=== PATIENT | female | born 1965 | race Caucasian/White ===

== ENCOUNTER 2016-08-19 11:50 | Emergency (ER) | payer BC, OTHER ==
[~2016-08-19 11:50] MED LIST: ALLE12TA31 PO; ASTE0.15; AUGM875T27 PO; BIOT50004 PO; CENTTAB47 PO; CITROCAL PO; HYDR-3713 PO; HYDR-3716 PO; MELA0.02 PO; PROBCAP4 PO; PROT1TAB2 PO; SING10TA32 PO; SYNT100T PO; TYLE325T5 PO; VITA200015 PO; VITA250L PO; asmanex INH
--- NOTE | 2016-08-19 12:35 | REP ---
PORTABLE CHEST: AP portable view of the chest is performed and compared to a prior study of 06/14/2016. There is no evidence of acute infiltrate or pulmonary edema. The heart is normal in size. The mediastinal silhouette is unremarkable. Visualized osseous structures are intact. IMPRESSION: No acute infiltrate. Signed by Roman Rodas MD 08/19/2016 02:34 P
[2016-08-19 12:44] LABS: BASO % 0.2 % (0.0-1.0); EOS # 0.1 K/mm3 (0.0-0.50); EOS % 1.4 % (0.0-3.0); LARGE UNSTAINED CELL # 0.1 K/mm3 (0.0-0.4); LYMPH # 1.2 K/mm3 (1.5-4.5); LYMPH % 17.8 % (24.0-44.0); MEAN CORPUSCULAR HEMOGLOBIN 32.6 pg (27.0-33.0); MEAN CORPUSCULAR HGB CONC 33.9 g/dl (32.0-36.5); MONO # 0.3 K/mm3 (0.0-0.8); MONO % 4.2 % (0.0-5.0); NEUTROPHILS # 5.2 K/mm3 (1.8-7.7); NEUTROPHILS % 74.4 % (36.0-66.0); PLATELET COUNT, AUTOMATED 253 k/mm3 (150-450); RED CELL DISTRIBUTION WIDTH 11.7 % (11.5-14.5); WHITE BLOOD COUNT 6.9 K/mm3 (4.0-10.0)
[2016-08-19 12:54] LABS: ANION GAP 5 MEQ/L (8-16); BLOOD UREA NITROGEN 10 MG/DL (7-18); CALCIUM LEVEL 8.2 MG/DL (8.5-10.1); CARBON DIOXIDE LEVEL 30 MEQ/L (21-32); CHLORIDE LEVEL 107 MEQ/L (98-107); GLOMERULAR FILTRATION RATE > 60.0 (>58); GLUCOSE, FASTING 92 MG/DL (70-105); POTASSIUM SERUM 3.5 MEQ/L (3.5-5.1); SODIUM LEVEL 142 MEQ/L (136-145)
[2016-08-19] MEDS ORDERED: NITROGLYCERIN 0.4 MG SUBL TABLET As Ordered ONE (13:02)
[2016-08-19] MEDS ORDERED: ISOVUE-370 76% 100ML VIAL (Q9967) As Ordered ONE (13:05)
[2016-08-19] MEDS ORDERED: ACETAMINOPHEN 325 MG TAB As Ordered ONE (13:42)
--- NOTE | 2016-08-19 14:07 | REP ---
CT pulmonary angiogram: With IV contrast. History: Chest pain. Comparison studies: No comparison chest CT studies. Comparison chest x-ray is from today. Contrast dose: 75 cc's of Isovue [address] technique: Helical scanning is acquired and overlapping 1.5 mm and contiguous 3 mm axial images are reformatted. In addition, a 3-D work station is deployed to generate thick slab maximum intensity projection images in sagittal and coronal imaging projections. CT pulmonary angiographic findings: There is good opacification of the pulmonary arterial tree. There is no CT evidence of pulmonary embolism. Maximum intensity projection images show no vessel cutoff or filling defect to suggest a pulmonary arterial thrombus. The thoracic aorta enhances homogeneously and the aorta is normal in caliber and course. There is no evidence of dissection or aneurysm. No pleural or pericardial effusion is seen. No hilar or mediastinal mass or adenopathy is observed. There is a hiatal hernia noted behind the heart. The lung ennis show no evidence of infiltrate, mass, atelectasis or nodule. The patient is status post gastric bypass. The visualized upper abdominal structures are otherwise unremarkable. Impression: 1. No CT evidence of pulmonary embolism. 2. Patient status post gastric bypass. 3. Small sliding-type hiatal hernia noted. Signed by Zack Guillen MD 08/19/2016 03:06 P
--- NOTE | 2016-08-19 19:19 | EDDOCDS ---
Nurse's Notes [facility] Name: Randa Strange Age: 51 yrs Sex: Female : 1965 Arrival Date: 08/19/2016 Time: 11:50 Bed OBSERVATION Private MD: Diagnosis: Chest pain, unspecified Presentation: 08/19 11:53 Presenting complaint: EMS states: chest pressure/pain at school. Aspirin given by rs3 school nurse. had previous similar episodes. had been referred to cardiology/neurology previously. Aspirin was taken KILN CHARGER. 325 given. Adult Sepsis Screening: The patient does not have new or worsening altered mentation. Patient's respiratory rate is less than 22. Systolic blood pressure is greater than 100. Patient has a qSOFA score of 0- Negative Sepsis Screen. Suicide/Homicide risk assessment- the patient denies having any suicidal and/or homicidal ideations and does not present with any other emotional, behavioral or mental health complaints. Status: Patient is not a access services assistant or dependent. Transition of care: patient was not received from another setting of care. 11:53 Acuity: HOLLY Level 3 3 11:53 Method Of Arrival: Ambulance rs3 Triage Assessment: 12:11 General: Appears in no apparent distress. Pain: Denies pain. HIV screening NA for this rs3 visit Offered previously. Cardiovascular: Chest pain is described as vague, radiates Does not radiate. episodes are intermittent began 1 hour prior to arrival. Historical: - Allergies: Bees; Blue Dye; Honey; Imitrex; Latex; [id number] Antimigraine Agents; - Home Meds: 1. aspirin 81 mg Oral tab 1 tab once daily 2. Astepro 0.15 % (205.5 mcg) nasal spry 2 sprays 2 times per day 3. levothyroxine 175 mcg Oral tab 1 tab once daily 4. Protonix 40 mg Oral TbEC 1 tab once daily 5. Singulair 10 mg Oral tab 1 tab once daily 6. Wellbutrin XL 150 mg Oral Tb24 bid - PMHx: GERD; Hypothyroidism; Seasonal Allergies; - PSHx: Hysterectomy; Appendectomy; Cholecystectomy; Gastric Bypass; Plantar Fasciotomy; - Social history: Smoking status: Patient states was never smoker of tobacco. No barriers to communication noted, The patient speaks fluent Tajik. - : The pt / caregiver states he / she is not on anticoagulants. Home medication list is obtained from the patient. - Exposure Risk Screening:: None identified. Screenin:24 Screening information is obtained from the patient. Fall risk: No risks identified. rs3 Assistance ADL's: requires no assistance with activities of daily living. Abuse/DV Screen: The patient / caregiver reports he/she is: not in a situation that causes fear, pain or injury. Nutritional screening: No deficits noted. Advance Directives: Currently, there is no health care proxy. There is no active DNR order. home support is adequate. Assessment: 12:12 General: Appears in no apparent distress, Behavior is appropriate for age, cooperative. rs3 Pain: Denies pain. Neurological: Level of Consciousness is awake, alert, Oriented to person, place, time. Cardiovascular: Rhythm is regular. Respiratory: Airway is patent Respiratory effort is even, unlabored, Respiratory pattern is regular, symmetrical. Respiratory: Breath sounds are clear bilaterally. Derm: Skin is pink, warm & dry. 13:22 General: Appears in no apparent distress, reports of chest pain/dizziness, hard time rs3 swallowing. attending provider made aware. ordered Nitrostat given with complete relief. EKG obtained. reports of headache from Nitrostat. will notify provider. 14:02 General: Appears in no apparent distress, Behavior is cooperative, patient resting rs3 comfortable. Tylenol given for headache. denies of chest pain. waiting on CT angio results. . 15:15 General: Appears in no apparent distress, denies of pain/headache. resting comfortable. rs3 requesting water. given to her. headache resolved with Tylenol. updated patient on repeat card jono. family at bedside. 16:02 General: Appears in no apparent distress, comfortable, Behavior is appropriate for age, ms18 cooperative, pleasant. Pain: Denies pain. Neurological: Level of Consciousness is awake, alert, obeys commands, Oriented to person, place, time. Respiratory: Derm: Skin is pink, warm & dry. 17:29 General: Appears in no apparent distress, Behavior is appropriate for age, cooperative, rs3 denies of chest pain/dizziness/sob. family at bedside. waiting for repeat card jono. . 18:20 General: Appears in no apparent distress, Behavior is appropriate for age, denies of rs3 pain/distress. reports of mild-moderated headache. repeat card jono sent. Vital Signs: 12:11 BP 132 / 68; Pulse 65; Resp 18; Temp 98.5; Pulse Ox 100% on R/A; Weight 63.5 kg; Height rs3 5 ft. 2 in. (157.48 cm); Pain 0/10; 12:22 BP 132 / 67 (auto/); rs3 12:23 Pulse 66 MON; Pulse Ox 100% ; rs3 12:52 BP 117 / 87 (auto/); rs3 12:53 Pulse 82 MON; Pulse Ox 98% ; rs3 13:07 BP 137 / 61 (auto/); rs3 13:09 Pulse 80 MON; Pulse Ox 100% ; rs3 13:22 BP 131 / 69 (auto/); rs3 13:22 Pulse 72 MON; Pulse Ox 98% ; rs3 13:37 BP 121 / 62 (auto/); rs3 13:38 Pulse 72 MON; Pulse Ox 100% ; rs3 13:52 BP 121 / 56 (auto/); rs3 13:53 Pulse 72 MON; Pulse Ox 96% ; rs3 14:07 BP 120 / 57 (auto/); rs3 14:08 Pulse 68 MON; Pulse Ox 99% ; rs3 14:22 BP 111 / 57 (auto/); rs3 14:23 Pulse 68 MON; Pulse Ox 99% ; rs3 14:37 BP 115 / 55 (auto/); rs3 14:38 Pulse 66 MON; Pulse Ox 98% ; rs3 14:52 BP 117 / 58 (auto/); rs3 14:53 Pulse 68 MON; Pulse Ox 98% ; rs3 15:07 BP 114 / 85 (auto/); rs3 15:08 Pulse 70 MON; Pulse Ox 99% ; rs3 15:22 BP 117 / 58 (auto/); rs3 15:23 Pulse 64 MON; Pulse Ox 98% ; rs3 15:37 BP 119 / 63 (auto/); rs3 15:38 Pulse 66 MON; Pulse Ox 98% ; rs3 15:52 BP 109 / 58 (auto/); rs3 15:53 Pulse 62 MON; Pulse Ox 98% ; rs3 16:07 BP 112 / 58 (auto/); rs3 16:08 Pulse 64 MON; Pulse Ox 99% ; rs3 16:22 BP 112 / 66 (auto/); rs3 16:23 Pulse 60 MON; Pulse Ox 99% ; rs3 16:37 BP 123 / 58 (auto/); rs3 16:38 Pulse 62 MON; Pulse Ox 99% ; rs3 16:52 BP 120 / 58 (auto/); rs3 16:53 Pulse 62 MON; Pulse Ox 99% ; rs3 17:07 BP 126 / 61 (auto/); rs3 17:07 Pulse 62 MON; Pulse Ox 98% ; rs3 17:22 BP 141 / 64 (auto/); rs3 17:23 Pulse 66 MON; Pulse Ox 98% ; rs3 12:11 Body Mass Index 25.61 (63.50 kg, 157.48 cm) rs3 Vitals: 12:11 Log In Time N/A - ambulance arrival. rs3 ED Course: 11:50 Patient visited by Alycia Mckeon Director Of Special Events. deg 11:50 Patient moved to Waiting deg 11:51 Patient moved to 6 deg 11:55 Triage Initiated rs3 11:59 Kolby Borrego MD is Attending Physician. br1 12:03 Patient visited by Figueroa Fink PCA. jrd 12:03 EKG done. (by ED staff). Reviewed by Kolby Borrego MD. jrd 12:06 Patient visited by Kolby Borrego MD. br1 12:24 Basic Metabolic Profile Sent. rs3 12:24 CBC with Diff Sent. rs3 12:24 Cardiac Injury Profile Sent. rs3 12:24 Troponin Sent. rs3 12:25 Inserted saline lock: 20 gauge in left antecubital area and blood collected. Labs rs3 drawn. (by ED staff). 12:46 Patient visited by Alice Lai RN. rs3 13:11 EKG done. (by ED staff). Reviewed by Kolby Borrego MD. ms18 13:18 portable chest Returned. EDMS 13:22 Patient visited by Alice Lai RN. rs3 13:36 [facility] [place] Payment Agreement was scanned into [employer] and attached to record. jp5 13:53 Patient visited by Kolby Borrego MD. br1 14:30 Patient visited by Trini Goodman RN. ms18 14:30 Patient moved to OBSERVATION ms18 14:56 portable chest Returned. EDMS 14:56 CT Chest Angio R/O PE Returned. EDMS 16:02 Patient visited by Trini Goodman RN. ms18 16:59 Patient visited by Alice Lai RN. rs3 17:29 Patient visited by Alice Lai RN. rs3 18:04 EKG done. (by ED staff). Reviewed by Kolby Borrego MD. jrd 19:01 Candice Anton is Referral Physician. br1 19:02 Monse Hunt DO is Referral Physician. br1 19:16 Patient visited by Madeleine Yan RN. tm5 19:18 The patient / caregiver is instructed regarding the plan of care and ED course. tm5 19:18 No procedures done that require assistance. tm5 Administered Medications: 13:11 Drug: Nitrostat 0.4 mg [Nitrostat 0.4 mg sublingual tablet (1 tabs)] Route: Sublingual; ms18 13:22 Follow up: Response: Pain is resolved rs3 13:46 Drug: Acetaminophen 650 mg [acetaminophen 325 mg tablet (2 tabs)] Route: PO; rs3 Order Results: Lab Order: Basic Metabolic Profile; SPEC'M 08/19/16 12:17 Test: GLUCOSE, FASTING; Value: 92; Range: 70-105; Units: MG/DL; Status: F Test: BLOOD UREA NITROGEN; Value: 10; Range: 7-18; Units: MG/DL; Status: F Test: CREATININE FOR GFR; Value: 0.70; Range: 0.55-1.02; Units: MG/DL; Status: F Test: GLOMERULAR FILTRATION RATE; Value: > 60.0; Range: >58; Status: F Test: SODIUM LEVEL; Value: 142; Range: 136-145; Units: MEQ/L; Status: F Test: POTASSIUM SERUM; Value: 3.5; Range: 3.5-5.1; Units: MEQ/L; Status: F Test: CHLORIDE LEVEL; Value: 107; Range: 98-107; Units: MEQ/L; Status: F Test: CARBON DIOXIDE LEVEL; Value: 30; Range: 21-32; Units: MEQ/L; Status: F Test: ANION GAP; Value: 5; Range: 8-16; Abnormal: Below low normal; Units: MEQ/L; Status: F Test: CALCIUM LEVEL; Value: 8.2; Range: 8.5-10.1; Abnormal: Below low normal; Units: MG/DL; Status: F Test Note: ; Units are mL/min/1.73 m2 Chronic Kidney Disease Staging per NKF: Stage I & II GFR >=60 Normal to Mildly Decreased Stage III GFR 30-59 Moderately Decreased Stage IV GFR 15-29 Severely Decreased Stage V GFR <15 Very Little GFR Left ESRD GFR <15 on DIRECTOR EXPORT Lab Order: CBC with Diff; SPEC'M 08/19/16 12:17 Test: WHITE BLOOD COUNT; Value: 6.9; Range: 4.0-10.0; Units: K/mm3; Status: F Test: RED BLOOD COUNT; Value: 3.79; Range: 4.00-5.40; Abnormal: Below low normal; Units: M/mm3; Status: F Test: HEMOGLOBIN; Value: 12.3; Range: 12.0-16.0; Units: g/dl; Status: F Test: HEMATOCRIT; Value: 36.4; Range: 36.0-47.0; Units: %; Status: F Test: MEAN CORPUSCULAR VOLUME; Value: 96.0; Range: 80.0-96.0; Units: fl; Status: F Test: MEAN CORPUSCULAR HEMOGLOBIN; Value: 32.6; Range: 27.0-33.0; Units: pg; Status: F Test: MEAN CORPUSCULAR HGB CONC; Value: 33.9; Range: 32.0-36.5; Units: g/dl; Status: F Test: RED CELL DISTRIBUTION WIDTH; Value: 11.7; Range: 11.5-14.5; Units: %; Status: F Test: PLATELET COUNT, AUTOMATED; Value: 253; Range: 150-450; Units: k/mm3; Status: F Test: NEUTROPHILS %; Value: 74.4; Range: 36.0-66.0; Abnormal: Above high normal; Units: %; Status: F Test: LYMPH %; Value: 17.8; Range: 24.0-44.0; Abnormal: Below low normal; Units: %; Status: F Test: MONO %; Value: 4.2; Range: 0.0-5.0; Units: %; Status: F Test: EOS %; Value: 1.4; Range: 0.0-3.0; Units: %; Status: F Test: BASO %; Value: 0.2; Range: 0.0-1.0; Units: %; Status: F Test: LARGE UNSTAINED CELL %; Value: 2.0; Range: 0.0-4.0; Units: %; Status: F Test: NEUTROPHILS #; Value: 5.2; Range: 1.8-7.7; Units: K/mm3; Status: F Test: LYMPH #; Value: 1.2; Range: 1.5-4.5; Abnormal: Below low normal; Units: K/mm3; Status: F Test: MONO #; Value: 0.3; Range: 0.0-0.8; Units: K/mm3; Status: F Test: EOS #; Value: 0.1; Range: 0.0-0.50; Units: K/mm3; Status: F Test: BASO #; Value: 0.0; Range: 0.0-0.2; Units: K/mm3; Status: F Test: LARGE UNSTAINED CELL #; Value: 0.1; Range: 0.0-0.4; Units: K/mm3; Status: F Lab Order: Cardiac Injury Profile; SPEC' 08/19/16 12:17 Test: CPK CREATINE PHOSPHOKINASE; Value: 68; Range: 26-192; Units: U/L; Status: F Test: CK-MB VALUE MASS; Value: 1.6; Range: 0.0-3.6; Units: NG/ML; Status: F Test: MB/CK RELATIVE INDEX; Value: 2.35; Range: < OR =4; Status: F Test Note: ; DIAGNOSIS CRITERIA MMB ng/ml Relative Index (RI) NON-AMI < or = 5 N/A RODAS ZONE > 5 < or = 4 AMI > 5 > 4 Lab Order: Troponin; SPEC'08/19/16 12:17 Test: TROPONIN I; Value: < 0.02; Range: < 0.10; Units: NG/ML; Status: F Test Note: ; Troponin I Reference Interval for Cloutex LOCI: 99th Percentile= 0.00-0.045 ng/ml Risk Stratification: <= 0.10 ng/ml Decreased Risk for Adverse Clinical Events. 0.10-1.50 ng/ml Increased Risk for Adverse Clinical Events. Evaluation of additional criterion and/or repeat testing in 2-6 hours is suggested to rule out myocardial damage. >= 1.50 ng/ml Indicative of Myocardial Injury. Lab Order: CARDIAC MARKER PANEL; SPEC'M 08/19/16 17:55 Test: CPK CREATINE PHOSPHOKINASE; Value: 53; Range: 26-192; Units: U/L; Status: F Test: CK-MB VALUE MASS; Value: 1.0; Range: 0.0-3.6; Units: NG/ML; Status: F Test: MB/CK RELATIVE INDEX; Value: 1.88; Range: < OR =4; Status: F Test: TROPONIN I; Value: < 0.02; Range: < 0.10; Units: NG/ML; Status: F Test Note: ; DIAGNOSIS CRITERIA MMB ng/ml Relative Index (RI) NON-AMI < or = 5 N/A RODAS ZONE > 5 < or = 4 AMI > 5 > 4 Radiology Order: portable chest Test: portable chest REASON FOR EXAMINATION: Chest Pain; PORTABLE CHEST:; ; AP portable view of the chest is performed and compared to a prior study of; 06/14/2016.; ; There is no evidence of acute infiltrate or pulmonary edema. The heart is normal; in size. The mediastinal silhouette is unremarkable. Visualized osseous; structures are intact.; ; IMPRESSION:; ; No acute infiltrate.; ; ; Signed by; Roman Rodas MD 08/19/2016 02:34 P; Radiology Order: CT Chest Angio R/O PE Test: CT Chest Angio R/O PE REASON FOR EXAMINATION: Chest Pain; CT pulmonary angiogram: With IV contrast.; ; History: Chest pain.; ; Comparison studies: No comparison chest CT studies.; ; Comparison chest x-ray is from today.; ; Contrast dose: 75 cc's of Isovue 370 are administered intravenously.; ; CT technique: Helical scanning is acquired and overlapping 1.5 mm and contiguous; 3 mm axial images are reformatted. In addition, a 3-D work station is deployed; to generate thick slab maximum intensity projection images in sagittal and; coronal imaging projections.; ; CT pulmonary angiographic findings: There is good opacification of the pulmonary; arterial tree. There is no CT evidence of pulmonary embolism. Maximum intensity; projection images show no vessel cutoff or filling defect to suggest a pulmonary; arterial thrombus. The thoracic aorta enhances homogeneously and the aorta is; normal in caliber and course. There is no evidence of dissection or aneurysm.; No pleural or pericardial effusion is seen. No hilar or mediastinal mass or; adenopathy is observed. There is a hiatal hernia noted behind the heart. The; lung ennis show no evidence of infiltrate, mass, atelectasis or nodule. The; patient is status post gastric bypass. The visualized upper abdominal structures; are otherwise unremarkable.; ; Impression:; ; 1. No CT evidence of pulmonary embolism.; ; 2. Patient status post gastric bypass.; ; 3. Small sliding-type hiatal hernia noted.; ; ; Signed by; Zack Guillen MD 08/19/2016 03:06 P; Outcome: 19:02 Discharge ordered by Provider. br1 19:17 Discharge Assessment: Patient awake, alert and oriented x 3. No cognitive and/or tm5 functional deficits noted. Patient verbalized understanding of disposition instructions. patient administered narcotics - no. The following High Risk Discharge criteria are identified: None. Discharged to home ambulatory, with family. Condition: good Condition: stable. Discharge instructions given to patient, Instructed on discharge instructions, follow up and referral plans. Demonstrated understanding of instructions, medications, Pt was receptive of discharge instructions/ teaching. Property :Personal belongings accompany Pt. 19:18 CT Study completed. tm5 19:18 Patient left the ED. tm5 Signatures: Dispatcher [employer] EDMS Alycia Mckeon, Director Of Special Events Unit deg Kolby Borrego MD MD br1 Alice Lai,APOORVA RN rs3 Trini Goodman,APOORVA RN ms18 Figueroa Fink, FELICIA C DEVELOPER Kerrie Borden jp5 Madeleine Yan,RN RN tm5 Corrections: (The following items were deleted from the chart) 12:12 12:00 Social history Smoking status: rs3 rs3 MTDD
--- NOTE | 2016-08-19 19:19 | EDDOCDS ---
Physician Documentation [facility] Name: Randa Strange Age: 51 yrs Sex: Female : 1965 Arrival Date: 08/19/2016 Time: 11:50 Bed OBSERVATION Private MD: Disposition: 08/19/16 19:02 Discharged to Home/Self Care. Impression: Chest pain, unspecified. - Condition is Stable. - Discharge Instructions: Nonspecific Chest Pain. - Medication Reconciliation, Local Pharmacy Hours form. - Follow up: Candice Anton; When: 1 - 2 days; Reason: Recheck today's complaints. Follow up: Monse Hunt DO; When: 4 - 5 days; Reason: Recheck today's complaints. - Problem is new. - Symptoms are resolved. - Notes: You were seen in the ED for chest pain. Bloodwork along with EKG of the heart, chest Xray and CT scan of the chest showed no acute findings. We have consulted with Cardiology as well. As you are feeling better you may return home. Please call Dr. Anton to arrange to be seen for ongoing care and recheck. Please also call Dr. Hunt to arrange primary care follow up as well. Return to the ED for any return of chest pain, trouble breathing, lightheadedness, loss of consciousness or any other concerns. Historical: - Allergies: Bees; Blue Dye; Honey; Imitrex; Latex; [id number] Antimigraine Agents; - Home Meds: 1. aspirin 81 mg Oral tab 1 tab once daily 2. Astepro 0.15 % (205.5 mcg) nasal spry 2 sprays 2 times per day 3. levothyroxine 175 mcg Oral tab 1 tab once daily 4. Protonix 40 mg Oral TbEC 1 tab once daily 5. Singulair 10 mg Oral tab 1 tab once daily 6. Wellbutrin XL 150 mg Oral Tb24 bid - PMHx: GERD; Hypothyroidism; Seasonal Allergies; - PSHx: Hysterectomy; Appendectomy; Cholecystectomy; Gastric Bypass; Plantar Fasciotomy; - Social history: Smoking status: Patient states was never smoker of tobacco. No barriers to communication noted, The patient speaks fluent Czech. - : The pt / caregiver states he / she is not on anticoagulants. Home medication list is obtained from the patient. - Exposure Risk Screening:: None identified. Vital Signs: 08/19 12:11 BP 132 / 68; Pulse 65; Resp 18; Temp 98.5; Pulse Ox 100% on R/A; Weight 63.5 kg / rs3 139.99 lbs; Height 5 ft. 2 in. (157.48 cm); Pain 0/10; 12:22 BP 132 / 67 (auto/); rs3 12:23 Pulse 66 MON; Pulse Ox 100% ; rs3 12:52 BP 117 / 87 (auto/); rs3 12:53 Pulse 82 MON; Pulse Ox 98% ; rs3 13:07 BP 137 / 61 (auto/); rs3 13:09 Pulse 80 MON; Pulse Ox 100% ; rs3 13:22 BP 131 / 69 (auto/); rs3 13:22 Pulse 72 MON; Pulse Ox 98% ; rs3 13:37 BP 121 / 62 (auto/); rs3 13:38 Pulse 72 MON; Pulse Ox 100% ; rs3 13:52 BP 121 / 56 (auto/); rs3 13:53 Pulse 72 MON; Pulse Ox 96% ; rs3 14:07 BP 120 / 57 (auto/); rs3 14:08 Pulse 68 MON; Pulse Ox 99% ; rs3 14:22 BP 111 / 57 (auto/); rs3 14:23 Pulse 68 MON; Pulse Ox 99% ; rs3 14:37 BP 115 / 55 (auto/); rs3 14:38 Pulse 66 MON; Pulse Ox 98% ; rs3 14:52 BP 117 / 58 (auto/); rs3 14:53 Pulse 68 MON; Pulse Ox 98% ; rs3 15:07 BP 114 / 85 (auto/); rs3 15:08 Pulse 70 MON; Pulse Ox 99% ; rs3 15:22 BP 117 / 58 (auto/); rs3 15:23 Pulse 64 MON; Pulse Ox 98% ; rs3 15:37 BP 119 / 63 (auto/); rs3 15:38 Pulse 66 MON; Pulse Ox 98% ; rs3 15:52 BP 109 / 58 (auto/); rs3 15:53 Pulse 62 MON; Pulse Ox 98% ; rs3 16:07 BP 112 / 58 (auto/); rs3 16:08 Pulse 64 MON; Pulse Ox 99% ; rs3 16:22 BP 112 / 66 (auto/); rs3 16:23 Pulse 60 MON; Pulse Ox 99% ; rs3 16:37 BP 123 / 58 (auto/); rs3 16:38 Pulse 62 MON; Pulse Ox 99% ; rs3 16:52 BP 120 / 58 (auto/); rs3 16:53 Pulse 62 MON; Pulse Ox 99% ; rs3 17:07 BP 126 / 61 (auto/); rs3 17:07 Pulse 62 MON; Pulse Ox 98% ; rs3 17:22 BP 141 / 64 (auto/); rs3 17:23 Pulse 66 MON; Pulse Ox 98% ; rs3 12:11 Body Mass Index 25.61 (63.50 kg, 157.48 cm) rs3 MDM: 11:52 ECG WITH READING ER PHYS+CARDIAG ordered. EDMS 11:53 Print Machine Operator/Pulse Ox/q 30 min VS ordered. sd1 11:53 IV Saline Lock ordered. sd1 11:53 Rhythm Strip to chart ordered. sd1 11:53 Undress patient appropriately for examination ordered. sd1 11:54 portable chest Ordered. EDMS 11:54 Basic Metabolic Profile Ordered. EDMS 11:54 CBC with Diff Ordered. EDMS 11:54 Cardiac Injury Profile Ordered. EDMS 11:54 Troponin Ordered. EDMS 12:27 Admit to ED Observation status ordered. br1 12:37 Admit to ED Observation status complete. deg 12:52 CBC with Diff Reviewed. br1 12:58 Basic Metabolic Profile Reviewed. br1 12:58 Cardiac Injury Profile Reviewed. br1 12:58 Troponin Reviewed. br1 12:59 Nitrostat 0.4 mg Sublingual every 5 minutes; hold if SBP<90mmHg.Document Pain Score br1 Response to Each Dose x3 ordered. 13:00 ECG WITH READING ER PHYS+CARDIAG ordered. EDMS 13:00 CT Chest Angio R/O PE Ordered. EDMS 13:27 Acetaminophen Tablet 650 mg PO once ordered. br1 13:36 [facility] [place] [facility] Payment Agreement was scanned into [employer] and attached to record. jp5 13:36 Financial registration complete. jp5 13:51 portable chest Reviewed. br1 13:52 Repeat EKG (put time details section) ordered. br1 13:52 Redraw CIP &Troponin (put time in details section) ordered. br1 14:26 Repeat EKG (put time details section) complete. deg 14:26 Redraw CIP &Troponin (put time in details section) complete. deg 14:27 ECG WITH READING ER PHYS ordered. EDMS 14:27 CARDIAC MARKER PANEL Ordered. EDMS 18:47 CARDIAC MARKER PANEL Reviewed. br1 18:47 portable chest Reviewed. br1 18:47 CT Chest Angio R/O PE Reviewed. br1 Administered Medications: 13:11 Drug: Nitrostat 0.4 mg [Nitrostat 0.4 mg sublingual tablet (1 tabs)] Route: Sublingual; ms18 13:22 Follow up: Response: Pain is resolved rs3 13:46 Drug: Acetaminophen 650 mg [acetaminophen 325 mg tablet (2 tabs)] Route: PO; rs3 Signatures: Dispatcher [employer] EDMS Lucero Loyola MD MD sd1 Alycia Mckeon, Knockout Man Unit deg Kolby Borrego MD MD br1 Alice Lai RN RN rs3 Kerrie Holden jp5 Madeleine Yan RN RN tm5 Trini Goodman RN ms18 The chart was reviewed and I authenticate all verbal orders and agree with the evaluation and treatment provided.Corrections: (The following items were deleted from the chart) 12:12 12:00 Social history Smoking status: rs3 rs3 Attachments: 13:36 [facility] [place] [facility] Payment Agreement jp5 MTDD
--- NOTE | 2016-08-20 09:19 | ECGEPIP ---
Stationary ECG Study [facility] - ED Test Date: 2016-08-19 Pat Name: MARIELA RODRIGUEZ Department: Room: - Gender: F Shank Turner: annalee : 1965 Requested By: Lucero Loyola Order Number: [id number] Reading MD: Lucero Loyola Measurements Intervals [place] Rate: 62 P: 57 MT: 173 QRS: 9 QRSD: 118 T: 23 QT: 408 QTc: 416 Interpretive Statements SINUS RHYTHM MODERATE INTRAVENTRICULAR CONDUCTION DELAY NSTTW ABNORMALITY SIMILAR 06/14/16 Electronically Signed On 08-20-2016 9:18:38 EST by Lucero Loyola
--- NOTE | 2016-08-20 10:50 | ECGEPIP ---
Stationary ECG Study [facility] - ED Test Date: 2016-08-19 Pat Name: MARIELA RODRIGUEZ Department: Room: - Gender: F Delivery Coordinator: annalee : 1965 Requested By: MAYRA Tijerina Order Number: [id number] Reading MD: Lucero Loyola Measurements Intervals [place] Rate: 62 P: 52 [place]: 186 QRS: 5 QRSD: 107 T: 20 QT: 411 QTc: 419 Interpretive Statements SINUS RHYTHM Electronically Signed On 08-20-2016 10:49:48 EST by Lucero Loyola
--- NOTE | 2016-08-20 10:51 | ECGEPIP ---
Stationary ECG Study [facility] - ED Test Date: 2016-08-19 Pat Name: MARIELA RODRIGUEZ Department: Room: - Gender: F Well Cleaner: : 1965 Requested By: MAYRA Tijerina Order Number: [id number] Reading MD: Lucero Loyola Measurements Intervals [place] Rate: 78 P: 58 [place]: 177 QRS: 9 QRSD: 108 T: 18 QT: 385 QTc: 440 Interpretive Statements SINUS RHYTHM INCREASED RATE 08/19/16 18:00 Electronically Signed On 08-20-2016 10:50:50 EST by Lucero Loyola
--- NOTE | 2016-08-21 20:19 | EDDOCDS ---
Physician Documentation [facility] Name: Randa Strange Age: 51 yrs Sex: Female : 1965 Arrival Date: 08/19/2016 Time: 11:50 Bed OBSERVATION Private MD: Disposition: 08/19/16 19:02 Discharged to Home/Self Care. Impression: Chest pain, unspecified. - Condition is Stable. - Discharge Instructions: Nonspecific Chest Pain. - Medication Reconciliation, Local Pharmacy Hours form. - Follow up: Candice Anton; When: 1 - 2 days; Reason: Recheck today's complaints. Follow up: Monse Hunt DO; When: 4 - 5 days; Reason: Recheck today's complaints. - Problem is new. - Symptoms are resolved. - Notes: You were seen in the ED for chest pain. Bloodwork along with EKG of the heart, chest Xray and CT scan of the chest showed no acute findings. We have consulted with Cardiology as well. As you are feeling better you may return home. Please call Dr. Anton to arrange to be seen for ongoing care and recheck. Please also call Dr. Hunt to arrange primary care follow up as well. Return to the ED for any return of chest pain, trouble breathing, lightheadedness, loss of consciousness or any other concerns. Historical: - Allergies: Bees; Blue Dye; Honey; Imitrex; Latex; [id number] Antimigraine Agents; - Home Meds: 1. aspirin 81 mg Oral tab 1 tab once daily 2. Astepro 0.15 % (205.5 mcg) nasal spry 2 sprays 2 times per day 3. levothyroxine 175 mcg Oral tab 1 tab once daily 4. Protonix 40 mg Oral TbEC 1 tab once daily 5. Singulair 10 mg Oral tab 1 tab once daily 6. Wellbutrin XL 150 mg Oral Tb24 bid - PMHx: GERD; Hypothyroidism; Seasonal Allergies; - PSHx: Hysterectomy; Appendectomy; Cholecystectomy; Gastric Bypass; Plantar Fasciotomy; - Social history: Smoking status: Patient states was never smoker of tobacco. No barriers to communication noted, The patient speaks fluent Swedish. - : The pt / caregiver states he / she is not on anticoagulants. Home medication list is obtained from the patient. - Exposure Risk Screening:: None identified. Vital Signs: 08/19 12:11 BP 132 / 68; Pulse 65; Resp 18; Temp 98.5; Pulse Ox 100% on R/A; Weight 63.5 kg / rs3 139.99 lbs; Height 5 ft. 2 in. (157.48 cm); Pain 0/10; 12:22 BP 132 / 67 (auto/); rs3 12:23 Pulse 66 MON; Pulse Ox 100% ; rs3 12:52 BP 117 / 87 (auto/); rs3 12:53 Pulse 82 MON; Pulse Ox 98% ; rs3 13:07 BP 137 / 61 (auto/); rs3 13:09 Pulse 80 MON; Pulse Ox 100% ; rs3 13:22 BP 131 / 69 (auto/); rs3 13:22 Pulse 72 MON; Pulse Ox 98% ; rs3 13:37 BP 121 / 62 (auto/); rs3 13:38 Pulse 72 MON; Pulse Ox 100% ; rs3 13:52 BP 121 / 56 (auto/); rs3 13:53 Pulse 72 MON; Pulse Ox 96% ; rs3 14:07 BP 120 / 57 (auto/); rs3 14:08 Pulse 68 MON; Pulse Ox 99% ; rs3 14:22 BP 111 / 57 (auto/); rs3 14:23 Pulse 68 MON; Pulse Ox 99% ; rs3 14:37 BP 115 / 55 (auto/); rs3 14:38 Pulse 66 MON; Pulse Ox 98% ; rs3 14:52 BP 117 / 58 (auto/); rs3 14:53 Pulse 68 MON; Pulse Ox 98% ; rs3 15:07 BP 114 / 85 (auto/); rs3 15:08 Pulse 70 MON; Pulse Ox 99% ; rs3 15:22 BP 117 / 58 (auto/); rs3 15:23 Pulse 64 MON; Pulse Ox 98% ; rs3 15:37 BP 119 / 63 (auto/); rs3 15:38 Pulse 66 MON; Pulse Ox 98% ; rs3 15:52 BP 109 / 58 (auto/); rs3 15:53 Pulse 62 MON; Pulse Ox 98% ; rs3 16:07 BP 112 / 58 (auto/); rs3 16:08 Pulse 64 MON; Pulse Ox 99% ; rs3 16:22 BP 112 / 66 (auto/); rs3 16:23 Pulse 60 MON; Pulse Ox 99% ; rs3 16:37 BP 123 / 58 (auto/); rs3 16:38 Pulse 62 MON; Pulse Ox 99% ; rs3 16:52 BP 120 / 58 (auto/); rs3 16:53 Pulse 62 MON; Pulse Ox 99% ; rs3 17:07 BP 126 / 61 (auto/); rs3 17:07 Pulse 62 MON; Pulse Ox 98% ; rs3 17:22 BP 141 / 64 (auto/); rs3 17:23 Pulse 66 MON; Pulse Ox 98% ; rs3 12:11 Body Mass Index 25.61 (63.50 kg, 157.48 cm) rs3 MDM: 11:52 ECG WITH READING ER PHYS+CARDIAG ordered. EDMS 11:53 Rf Design Engineer/Pulse Ox/q 30 min VS ordered. sd1 11:53 IV Saline Lock ordered. sd1 11:53 Rhythm Strip to chart ordered. sd1 11:53 Undress patient appropriately for examination ordered. sd1 11:54 portable chest Ordered. EDMS 11:54 Basic Metabolic Profile Ordered. EDMS 11:54 CBC with Diff Ordered. EDMS 11:54 Cardiac Injury Profile Ordered. EDMS 11:54 Troponin Ordered. EDMS 12:27 Admit to ED Observation status ordered. br1 12:37 Admit to ED Observation status complete. deg 12:52 CBC with Diff Reviewed. br1 12:58 Basic Metabolic Profile Reviewed. br1 12:58 Cardiac Injury Profile Reviewed. br1 12:58 Troponin Reviewed. br1 12:59 Nitrostat 0.4 mg Sublingual every 5 minutes; hold if SBP<90mmHg.Document Pain Score br1 Response to Each Dose x3 ordered. 13:00 ECG WITH READING ER PHYS+CARDIAG ordered. EDMS 13:00 CT Chest Angio R/O PE Ordered. EDMS 13:27 Acetaminophen Tablet 650 mg PO once ordered. br1 13:36 [facility] [place] Payment Agreement was scanned into [employer] and attached to record. jp5 13:36 Financial registration complete. jp5 13:51 portable chest Reviewed. br1 13:52 Repeat EKG (put time details section) ordered. br1 13:52 Redraw CIP &Troponin (put time in details section) ordered. br1 14:26 Repeat EKG (put time details section) complete. deg 14:26 Redraw CIP &Troponin (put time in details section) complete. deg 14:27 ECG WITH READING ER PHYS ordered. EDMS 14:27 CARDIAC MARKER PANEL Ordered. EDMS 18:47 CARDIAC MARKER PANEL Reviewed. br1 18:47 portable chest Reviewed. br1 18:47 CT Chest Angio R/O PE Reviewed. br1 02 12:20 T-Sheet-- Draft Copy was scanned into [employer] and attached to record. gb 12:21 ECG/EKG was scanned into [employer] and attached to record. gb 12:21 Radiology Report was scanned into [employer] and attached to record. gb Administered Medications: 08/19 13:11 Drug: Nitrostat 0.4 mg [Nitrostat 0.4 mg sublingual tablet (1 tabs)] Route: Sublingual; ms18 13:22 Follow up: Response: Pain is resolved rs3 13:46 Drug: Acetaminophen 650 mg [acetaminophen 325 mg tablet (2 tabs)] Route: PO; rs3 Signatures: Dispatcher [employer] EDLucero Rosas MD MD sd1 Alycia Mckeon, Hair Dryer Unit deg Arielle Norwood, Reg Reg gb Kolby Borrego MD MD br1 Alice Lai,RN RN rs3 Kerrie Holden jp5 Madeleine Yan RN RN tm5 Trini Goodman RN ms18 The chart was reviewed and I authenticate all verbal orders and agree with the evaluation and treatment provided.Corrections: (The following items were deleted from the chart) 12:12 12:00 Social history Smoking status: rs3 rs3 Attachments: 13:36 [facility] Payment Agreement jp5 08/20 12:20 T-Sheet-- Draft Copy gb 12:21 ECG/EKG gb Chart Complete MTDD
--- NOTE | 2016-08-21 20:19 | EDDOCDS ---
Physician Documentation [facility] Name: Randa Strange Age: 51 yrs Sex: Female : 1965 Arrival Date: 08/19/2016 Time: 11:50 Bed OBSERVATION Private MD: Disposition: 08/19/16 19:02 Discharged to Home/Self Care. Impression: Chest pain, unspecified. - Condition is Stable. - Discharge Instructions: Nonspecific Chest Pain. - Medication Reconciliation, Local Pharmacy Hours form. - Follow up: Candice Anton; When: 1 - 2 days; Reason: Recheck today's complaints. Follow up: Monse Hunt DO; When: 4 - 5 days; Reason: Recheck today's complaints. - Problem is new. - Symptoms are resolved. - Notes: You were seen in the ED for chest pain. Bloodwork along with EKG of the heart, chest Xray and CT scan of the chest showed no acute findings. We have consulted with Cardiology as well. As you are feeling better you may return home. Please call Dr. Anton to arrange to be seen for ongoing care and recheck. Please also call Dr. Hunt to arrange primary care follow up as well. Return to the ED for any return of chest pain, trouble breathing, lightheadedness, loss of consciousness or any other concerns. Historical: - Allergies: Bees; Blue Dye; Honey; Imitrex; Latex; [id number] Antimigraine Agents; - Home Meds: 1. aspirin 81 mg Oral tab 1 tab once daily 2. Astepro 0.15 % (205.5 mcg) nasal spry 2 sprays 2 times per day 3. levothyroxine 175 mcg Oral tab 1 tab once daily 4. Protonix 40 mg Oral TbEC 1 tab once daily 5. Singulair 10 mg Oral tab 1 tab once daily 6. Wellbutrin XL 150 mg Oral Tb24 bid - PMHx: GERD; Hypothyroidism; Seasonal Allergies; - PSHx: Hysterectomy; Appendectomy; Cholecystectomy; Gastric Bypass; Plantar Fasciotomy; - Social history: Smoking status: Patient states was never smoker of tobacco. No barriers to communication noted, The patient speaks fluent Greenlandic. - : The pt / caregiver states he / she is not on anticoagulants. Home medication list is obtained from the patient. - Exposure Risk Screening:: None identified. Vital Signs: 08/19 12:11 BP 132 / 68; Pulse 65; Resp 18; Temp 98.5; Pulse Ox 100% on R/A; Weight 63.5 kg / rs3 139.99 lbs; Height 5 ft. 2 in. (157.48 cm); Pain 0/10; 12:22 BP 132 / 67 (auto/); rs3 12:23 Pulse 66 MON; Pulse Ox 100% ; rs3 12:52 BP 117 / 87 (auto/); rs3 12:53 Pulse 82 MON; Pulse Ox 98% ; rs3 13:07 BP 137 / 61 (auto/); rs3 13:09 Pulse 80 MON; Pulse Ox 100% ; rs3 13:22 BP 131 / 69 (auto/); rs3 13:22 Pulse 72 MON; Pulse Ox 98% ; rs3 13:37 BP 121 / 62 (auto/); rs3 13:38 Pulse 72 MON; Pulse Ox 100% ; rs3 13:52 BP 121 / 56 (auto/); rs3 13:53 Pulse 72 MON; Pulse Ox 96% ; rs3 14:07 BP 120 / 57 (auto/); rs3 14:08 Pulse 68 MON; Pulse Ox 99% ; rs3 14:22 BP 111 / 57 (auto/); rs3 14:23 Pulse 68 MON; Pulse Ox 99% ; rs3 14:37 BP 115 / 55 (auto/); rs3 14:38 Pulse 66 MON; Pulse Ox 98% ; rs3 14:52 BP 117 / 58 (auto/); rs3 14:53 Pulse 68 MON; Pulse Ox 98% ; rs3 15:07 BP 114 / 85 (auto/); rs3 15:08 Pulse 70 MON; Pulse Ox 99% ; rs3 15:22 BP 117 / 58 (auto/); rs3 15:23 Pulse 64 MON; Pulse Ox 98% ; rs3 15:37 BP 119 / 63 (auto/); rs3 15:38 Pulse 66 MON; Pulse Ox 98% ; rs3 15:52 BP 109 / 58 (auto/); rs3 15:53 Pulse 62 MON; Pulse Ox 98% ; rs3 16:07 BP 112 / 58 (auto/); rs3 16:08 Pulse 64 MON; Pulse Ox 99% ; rs3 16:22 BP 112 / 66 (auto/); rs3 16:23 Pulse 60 MON; Pulse Ox 99% ; rs3 16:37 BP 123 / 58 (auto/); rs3 16:38 Pulse 62 MON; Pulse Ox 99% ; rs3 16:52 BP 120 / 58 (auto/); rs3 16:53 Pulse 62 MON; Pulse Ox 99% ; rs3 17:07 BP 126 / 61 (auto/); rs3 17:07 Pulse 62 MON; Pulse Ox 98% ; rs3 17:22 BP 141 / 64 (auto/); rs3 17:23 Pulse 66 MON; Pulse Ox 98% ; rs3 12:11 Body Mass Index 25.61 (63.50 kg, 157.48 cm) rs3 MDM: 11:52 ECG WITH READING ER PHYS+CARDIAG ordered. EDMS 11:53 Theatrical Dresser/Pulse Ox/q 30 min VS ordered. sd1 11:53 IV Saline Lock ordered. sd1 11:53 Rhythm Strip to chart ordered. sd1 11:53 Undress patient appropriately for examination ordered. sd1 11:54 portable chest Ordered. EDMS 11:54 Basic Metabolic Profile Ordered. EDMS 11:54 CBC with Diff Ordered. EDMS 11:54 Cardiac Injury Profile Ordered. EDMS 11:54 Troponin Ordered. EDMS 12:27 Admit to ED Observation status ordered. br1 12:37 Admit to ED Observation status complete. deg 12:52 CBC with Diff Reviewed. br1 12:58 Basic Metabolic Profile Reviewed. br1 12:58 Cardiac Injury Profile Reviewed. br1 12:58 Troponin Reviewed. br1 12:59 Nitrostat 0.4 mg Sublingual every 5 minutes; hold if SBP<90mmHg.Document Pain Score br1 Response to Each Dose x3 ordered. 13:00 ECG WITH READING ER PHYS+CARDIAG ordered. EDMS 13:00 CT Chest Angio R/O PE Ordered. EDMS 13:27 Acetaminophen Tablet 650 mg PO once ordered. br1 13:36 [facility] [place] Payment Agreement was scanned into [employer] and attached to record. jp5 13:36 Financial registration complete. jp5 13:51 portable chest Reviewed. br1 13:52 Repeat EKG (put time details section) ordered. br1 13:52 Redraw CIP &Troponin (put time in details section) ordered. br1 14:26 Repeat EKG (put time details section) complete. deg 14:26 Redraw CIP &Troponin (put time in details section) complete. deg 14:27 ECG WITH READING ER PHYS ordered. EDMS 14:27 CARDIAC MARKER PANEL Ordered. EDMS 18:47 CARDIAC MARKER PANEL Reviewed. br1 18:47 portable chest Reviewed. br1 18:47 CT Chest Angio R/O PE Reviewed. br1 02 12:20 T-Sheet-- Draft Copy was scanned into [employer] and attached to record. gb 12:21 ECG/EKG was scanned into [employer] and attached to record. gb 12:21 Radiology Report was scanned into [employer] and attached to record. gb Administered Medications: 08/19 13:11 Drug: Nitrostat 0.4 mg [Nitrostat 0.4 mg sublingual tablet (1 tabs)] Route: Sublingual; ms18 13:22 Follow up: Response: Pain is resolved rs3 13:46 Drug: Acetaminophen 650 mg [acetaminophen 325 mg tablet (2 tabs)] Route: PO; rs3 Signatures: Dispatcher [employer] EDLucero Rosas MD MD sd1 Alycia Mckeon, Box Toe Flanger St[employer]s Unit deg Arielle Norwood, Reg Reg gb Kolby Borrego MD MD br1 Alice Lai,RN RN rs3 Kerrie Holden jp5 Madeleine Yan RN RN tm5 Trini Goodman RN ms18 The chart was reviewed and I authenticate all verbal orders and agree with the evaluation and treatment provided.Corrections: (The following items were deleted from the chart) 12:12 12:00 Social history Smoking status: rs3 rs3 Attachments: 13:36 [facility] Payment Agreement jp5 08/20 12:20 T-Sheet-- Draft Copy gb 12:21 ECG/EKG gb Chart Complete MTDD
--- NOTE | 2016-08-21 20:19 | EDDOCDS ---
Nurse's Notes [facility] Name: Randa Strange Age: 51 yrs Sex: Female : 1965 Arrival Date: 08/19/2016 Time: 11:50 Bed OBSERVATION Private MD: Diagnosis: Chest pain, unspecified Presentation: 08/19 11:53 Presenting complaint: EMS states: chest pressure/pain at school. Aspirin given by rs3 school nurse. had previous similar episodes. had been referred to cardiology/neurology previously. 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 325 given. Adult Sepsis Screening: The patient does not have new or worsening altered mentation. Patient's respiratory rate is less than 22. Systolic blood pressure is greater than 100. Patient has a qSOFA score of 0- Negative Sepsis Screen. Suicide/Homicide risk assessment- the patient denies having any suicidal and/or homicidal ideations and does not present with any other emotional, behavioral or mental health complaints. Status: Patient is not a technical services manager or dependent. Transition of care: patient was not received from another setting of care. 11:53 Acuity: HOLLY Level 3 3 11:53 Method Of Arrival: Ambulance rs3 Triage Assessment: 12:11 General: Appears in no apparent distress. Pain: Denies pain. HIV screening NA for this rs3 visit Offered previously. Cardiovascular: Chest pain is described as vague, radiates Does not radiate. episodes are intermittent began 1 hour prior to arrival. Historical: - Allergies: Bees; Blue Dye; Honey; Imitrex; Latex; [id number] Antimigraine Agents; - Home Meds: 1. aspirin 81 mg Oral tab 1 tab once daily 2. Astepro 0.15 % (205.5 mcg) nasal spry 2 sprays 2 times per day 3. levothyroxine 175 mcg Oral tab 1 tab once daily 4. Protonix 40 mg Oral TbEC 1 tab once daily 5. Singulair 10 mg Oral tab 1 tab once daily 6. Wellbutrin XL 150 mg Oral Tb24 bid - PMHx: GERD; Hypothyroidism; Seasonal Allergies; - PSHx: Hysterectomy; Appendectomy; Cholecystectomy; Gastric Bypass; Plantar Fasciotomy; - Social history: Smoking status: Patient states was never smoker of tobacco. No barriers to communication noted, The patient speaks fluent Turkmen. - : The pt / caregiver states he / she is not on anticoagulants. Home medication list is obtained from the patient. - Exposure Risk Screening:: None identified. Screenin:24 Screening information is obtained from the patient. Fall risk: No risks identified. rs3 Assistance ADL's: requires no assistance with activities of daily living. Abuse/DV Screen: The patient / caregiver reports he/she is: not in a situation that causes fear, pain or injury. Nutritional screening: No deficits noted. Advance Directives: Currently, there is no health care proxy. There is no active DNR order. home support is adequate. Assessment: 12:12 General: Appears in no apparent distress, Behavior is appropriate for age, cooperative. rs3 Pain: Denies pain. Neurological: Level of Consciousness is awake, alert, Oriented to person, place, time. Cardiovascular: Rhythm is regular. Respiratory: Airway is patent Respiratory effort is even, unlabored, Respiratory pattern is regular, symmetrical. Respiratory: Breath sounds are clear bilaterally. Derm: Skin is pink, warm & dry. 13:22 General: Appears in no apparent distress, reports of chest pain/dizziness, hard time rs3 swallowing. attending provider made aware. ordered Nitrostat given with complete relief. EKG obtained. reports of headache from Nitrostat. will notify provider. 14:02 General: Appears in no apparent distress, Behavior is cooperative, patient resting rs3 comfortable. Tylenol given for headache. denies of chest pain. waiting on CT angio results. . 15:15 General: Appears in no apparent distress, denies of pain/headache. resting comfortable. rs3 requesting water. given to her. headache resolved with Tylenol. updated patient on repeat card jono. family at bedside. 16:02 General: Appears in no apparent distress, comfortable, Behavior is appropriate for age, ms18 cooperative, pleasant. Pain: Denies pain. Neurological: Level of Consciousness is awake, alert, obeys commands, Oriented to person, place, time. Respiratory: Derm: Skin is pink, warm & dry. 17:29 General: Appears in no apparent distress, Behavior is appropriate for age, cooperative, rs3 denies of chest pain/dizziness/sob. family at bedside. waiting for repeat card jono. . 18:20 General: Appears in no apparent distress, Behavior is appropriate for age, denies of rs3 pain/distress. reports of mild-moderated headache. repeat card jono sent. Vital Signs: 12:11 BP 132 / 68; Pulse 65; Resp 18; Temp 98.5; Pulse Ox 100% on R/A; Weight 63.5 kg; Height rs3 5 ft. 2 in. (157.48 cm); Pain 0/10; 12:22 BP 132 / 67 (auto/); rs3 12:23 Pulse 66 MON; Pulse Ox 100% ; rs3 12:52 BP 117 / 87 (auto/); rs3 12:53 Pulse 82 MON; Pulse Ox 98% ; rs3 13:07 BP 137 / 61 (auto/); rs3 13:09 Pulse 80 MON; Pulse Ox 100% ; rs3 13:22 BP 131 / 69 (auto/); rs3 13:22 Pulse 72 MON; Pulse Ox 98% ; rs3 13:37 BP 121 / 62 (auto/); rs3 13:38 Pulse 72 MON; Pulse Ox 100% ; rs3 13:52 BP 121 / 56 (auto/); rs3 13:53 Pulse 72 MON; Pulse Ox 96% ; rs3 14:07 BP 120 / 57 (auto/); rs3 14:08 Pulse 68 MON; Pulse Ox 99% ; rs3 14:22 BP 111 / 57 (auto/); rs3 14:23 Pulse 68 MON; Pulse Ox 99% ; rs3 14:37 BP 115 / 55 (auto/); rs3 14:38 Pulse 66 MON; Pulse Ox 98% ; rs3 14:52 BP 117 / 58 (auto/); rs3 14:53 Pulse 68 MON; Pulse Ox 98% ; rs3 15:07 BP 114 / 85 (auto/); rs3 15:08 Pulse 70 MON; Pulse Ox 99% ; rs3 15:22 BP 117 / 58 (auto/); rs3 15:23 Pulse 64 MON; Pulse Ox 98% ; rs3 15:37 BP 119 / 63 (auto/); rs3 15:38 Pulse 66 MON; Pulse Ox 98% ; rs3 15:52 BP 109 / 58 (auto/); rs3 15:53 Pulse 62 MON; Pulse Ox 98% ; rs3 16:07 BP 112 / 58 (auto/); rs3 16:08 Pulse 64 MON; Pulse Ox 99% ; rs3 16:22 BP 112 / 66 (auto/); rs3 16:23 Pulse 60 MON; Pulse Ox 99% ; rs3 16:37 BP 123 / 58 (auto/); rs3 16:38 Pulse 62 MON; Pulse Ox 99% ; rs3 16:52 BP 120 / 58 (auto/); rs3 16:53 Pulse 62 MON; Pulse Ox 99% ; rs3 17:07 BP 126 / 61 (auto/); rs3 17:07 Pulse 62 MON; Pulse Ox 98% ; rs3 17:22 BP 141 / 64 (auto/); rs3 17:23 Pulse 66 MON; Pulse Ox 98% ; rs3 12:11 Body Mass Index 25.61 (63.50 kg, 157.48 cm) rs3 Vitals: 12:11 Log In Time N/A - ambulance arrival. rs3 ED Course: 11:50 Patient visited by Alycia Mckeon Cheese Specialist. deg 11:50 Patient moved to Waiting deg 11:51 Patient moved to 6 deg 11:55 Triage Initiated rs3 11:59 Mayra Borrego MD is Attending Physician. br1 12:03 Patient visited by Figueroa Fink PCA. jrd 12:03 EKG done. (by ED staff). Reviewed by Mayra Borrego MD. jrd 12:06 Patient visited by Mayra Borrego MD. br1 12:24 Basic Metabolic Profile Sent. rs3 12:24 CBC with Diff Sent. rs3 12:24 Cardiac Injury Profile Sent. rs3 12:24 Troponin Sent. rs3 12:25 Inserted saline lock: 20 gauge in left antecubital area and blood collected. Labs rs3 drawn. (by ED staff). 12:46 Patient visited by Alice Lai RN. rs3 13:11 EKG done. (by ED staff). Reviewed by Mayra Borrego MD. ms18 13:18 portable chest Returned. EDMS 13:22 Patient visited by Alice Lai RN. rs3 13:36 [facility] Payment Agreement was scanned into [employer] and attached to record. jp5 13:53 Patient visited by Mayra Borrego MD. br1 14:30 Patient visited by Trini Goodman RN. ms18 14:30 Patient moved to OBSERVATION ms18 14:56 portable chest Returned. EDMS 14:56 CT Chest Angio R/O PE Returned. EDMS 16:02 Patient visited by Trini Goodman,APOORVA. ms18 16:59 Patient visited by Alice Lai,APOORVA. rs3 17:29 Patient visited by Alice Lai RN. rs3 18:04 EKG done. (by ED staff). Reviewed by Mayra Borrego MD. jrd 19:01 Candice Anton is Referral Physician. br1 19:02 Monse Hunt DO is Referral Physician. br1 19:16 Patient visited by Madeleine Yan,APOORVA. tm5 19:18 The patient / caregiver is instructed regarding the plan of care and ED course. tm5 19:18 No procedures done that require assistance. tm5 0203 09:55 EKG-ADULT Returned. EDMS 11:11 ECG WITH READING ER PHYS Returned. EDMS 11:12 EKG-ADULT Returned. EDMS 12:20 T-Sheet-- Draft Copy was scanned into [employer] and attached to record. gb 12:21 ECG/EKG was scanned into [employer] and attached to record. gb 12:21 Radiology Report was scanned into [employer] and attached to record. gb Administered Medications: 02 13:11 Drug: Nitrostat 0.4 mg [Nitrostat 0.4 mg sublingual tablet (1 tabs)] Route: Sublingual; ms18 13:22 Follow up: Response: Pain is resolved rs3 13:46 Drug: Acetaminophen 650 mg [acetaminophen 325 mg tablet (2 tabs)] Route: PO; rs3 Order Results: Lab Order: Basic Metabolic Profile; SPEC'M 08/19/16 12:17 Test: GLUCOSE, FASTING; Value: 92; Range: 70-105; Units: MG/DL; Status: F Test: BLOOD UREA NITROGEN; Value: 10; Range: 7-18; Units: MG/DL; Status: F Test: CREATININE FOR GFR; Value: 0.70; Range: 0.55-1.02; Units: MG/DL; Status: F Test: GLOMERULAR FILTRATION RATE; Value: > 60.0; Range: >58; Status: F Test: SODIUM LEVEL; Value: 142; Range: 136-145; Units: MEQ/L; Status: F Test: POTASSIUM SERUM; Value: 3.5; Range: 3.5-5.1; Units: MEQ/L; Status: F Test: CHLORIDE LEVEL; Value: 107; Range: 98-107; Units: MEQ/L; Status: F Test: CARBON DIOXIDE LEVEL; Value: 30; Range: 21-32; Units: MEQ/L; Status: F Test: ANION GAP; Value: 5; Range: 8-16; Abnormal: Below low normal; Units: MEQ/L; Status: F Test: CALCIUM LEVEL; Value: 8.2; Range: 8.5-10.1; Abnormal: Below low normal; Units: MG/DL; Status: F Test Note: ; Units are mL/min/1.73 m2 Chronic Kidney Disease Staging per NKF: Stage I & II GFR >=60 Normal to Mildly Decreased Stage III GFR 30-59 Moderately Decreased Stage IV GFR 15-29 Severely Decreased Stage V GFR <15 Very Little GFR Left ESRD GFR <15 on PROFESSIONAL DRIVER Lab Order: CBC with Diff; SPEC'M 08/19/16 12:17 Test: WHITE BLOOD COUNT; Value: 6.9; Range: 4.0-10.0; Units: K/mm3; Status: F Test: RED BLOOD COUNT; Value: 3.79; Range: 4.00-5.40; Abnormal: Below low normal; Units: M/mm3; Status: F Test: HEMOGLOBIN; Value: 12.3; Range: 12.0-16.0; Units: g/dl; Status: F Test: HEMATOCRIT; Value: 36.4; Range: 36.0-47.0; Units: %; Status: F Test: MEAN CORPUSCULAR VOLUME; Value: 96.0; Range: 80.0-96.0; Units: fl; Status: F Test: MEAN CORPUSCULAR HEMOGLOBIN; Value: 32.6; Range: 27.0-33.0; Units: pg; Status: F Test: MEAN CORPUSCULAR HGB CONC; Value: 33.9; Range: 32.0-36.5; Units: g/dl; Status: F Test: RED CELL DISTRIBUTION WIDTH; Value: 11.7; Range: 11.5-14.5; Units: %; Status: F Test: PLATELET COUNT, AUTOMATED; Value: 253; Range: 150-450; Units: k/mm3; Status: F Test: NEUTROPHILS %; Value: 74.4; Range: 36.0-66.0; Abnormal: Above high normal; Units: %; Status: F Test: LYMPH %; Value: 17.8; Range: 24.0-44.0; Abnormal: Below low normal; Units: %; Status: F Test: MONO %; Value: 4.2; Range: 0.0-5.0; Units: %; Status: F Test: EOS %; Value: 1.4; Range: 0.0-3.0; Units: %; Status: F Test: BASO %; Value: 0.2; Range: 0.0-1.0; Units: %; Status: F Test: LARGE UNSTAINED CELL %; Value: 2.0; Range: 0.0-4.0; Units: %; Status: F Test: NEUTROPHILS #; Value: 5.2; Range: 1.8-7.7; Units: K/mm3; Status: F Test: LYMPH #; Value: 1.2; Range: 1.5-4.5; Abnormal: Below low normal; Units: K/mm3; Status: F Test: MONO #; Value: 0.3; Range: 0.0-0.8; Units: K/mm3; Status: F Test: EOS #; Value: 0.1; Range: 0.0-0.50; Units: K/mm3; Status: F Test: BASO #; Value: 0.0; Range: 0.0-0.2; Units: K/mm3; Status: F Test: LARGE UNSTAINED CELL #; Value: 0.1; Range: 0.0-0.4; Units: K/mm3; Status: F Lab Order: Cardiac Injury Profile; SPEC'M 08/19/16 12:17 Test: CPK CREATINE PHOSPHOKINASE; Value: 68; Range: 26-192; Units: U/L; Status: F Test: CK-MB VALUE MASS; Value: 1.6; Range: 0.0-3.6; Units: NG/ML; Status: F Test: MB/CK RELATIVE INDEX; Value: 2.35; Range: < OR =4; Status: F Test Note: ; DIAGNOSIS CRITERIA MMB ng/ml Relative Index (RI) NON-AMI < or = 5 N/A RODAS ZONE > 5 < or = 4 AMI > 5 > 4 Lab Order: Troponin; SPEC'M 08/19/16 12:17 Test: TROPONIN I; Value: < 0.02; Range: < 0.10; Units: NG/ML; Status: F Test Note: ; Troponin I Reference Interval for [employer] [employer] LOCI: 99th Percentile= 0.00-0.045 ng/ml Risk Stratification: <= 0.10 ng/ml Decreased Risk for Adverse Clinical Events. 0.10-1.50 ng/ml Increased Risk for Adverse Clinical Events. Evaluation of additional criterion and/or repeat testing in 2-6 hours is suggested to rule out myocardial damage. >= 1.50 ng/ml Indicative of Myocardial Injury. Lab Order: CARDIAC MARKER PANEL; SPEC'M 08/19/16 17:55 Test: CPK CREATINE PHOSPHOKINASE; Value: 53; Range: 26-192; Units: U/L; Status: F Test: CK-MB VALUE MASS; Value: 1.0; Range: 0.0-3.6; Units: NG/ML; Status: F Test: MB/CK RELATIVE INDEX; Value: 1.88; Range: < OR =4; Status: F Test: TROPONIN I; Value: < 0.02; Range: < 0.10; Units: NG/ML; Status: F Test Note: ; DIAGNOSIS CRITERIA MMB ng/ml Relative Index (RI) NON-AMI < or = 5 N/A RODAS ZONE > 5 < or = 4 AMI > 5 > 4 Radiology Order: EKG-ADULT Test: EKG-ADULT REASON FOR EXAMINATION: Chest Pain; Stationary ECG Study; [facility] - ED; ; Test Date: 2016-08-19; Pat Name: RANDA STRANGE Department:; Room: -; Gender: F Pricing Manager: annalee; : 1965 Requested By: Lucero Loyola; Order Number: [id number] Reading MD: Lucero Loyola; Measurements; Intervals [place]; Rate: 62 P: 57; FL: 173 QRS: 9; QRSD: 118 T: 23; QT: 408; QTc: 416; Interpretive Statements; SINUS RHYTHM; MODERATE INTRAVENTRICULAR CONDUCTION DELAY; NSTTW ABNORMALITY; SIMILAR 06/14/16; Electronically Signed On 08-20-2016 9:18:38 EST by Lucero Loyola; Radiology Order: portable chest Test: portable chest REASON FOR EXAMINATION: Chest Pain; PORTABLE CHEST:; ; AP portable view of the chest is performed and compared to a prior study of; 06/14/2016.; ; There is no evidence of acute infiltrate or pulmonary edema. The heart is normal; in size. The mediastinal silhouette is unremarkable. Visualized osseous; structures are intact.; ; IMPRESSION:; ; No acute infiltrate.; ; ; Signed by; Roman Rodas MD 08/19/2016 02:34 P; Radiology Order: EKG-ADULT Test: EKG-ADULT REASON FOR EXAMINATION: Chest Pain; Stationary ECG Study; [facility] - ED; ; Test Date: 2016-08-19; Pat Name: RANDA STRANGE Department:; Room: -; Gender: F Pricing Manager:; : 1965 Requested By: MAYRA Tijerina; Order Number: [id number] Reading MD: Lucero Loyola; Measurements; Intervals [place]; Rate: 78 P: 58; FL: 177 QRS: 9; QRSD: 108 T: 18; QT: 385; QTc: 440; Interpretive Statements; SINUS RHYTHM; INCREASED RATE 08/19/16 18:00; Electronically Signed On 08-20-2016 10:50:50 EST by Lucero Loyola; Radiology Order: CT Chest Angio R/O PE Test: CT Chest Angio R/O PE REASON FOR EXAMINATION: Chest Pain; CT pulmonary angiogram: With IV contrast.; ; History: Chest pain.; ; Comparison studies: No comparison chest CT studies.; ; Comparison chest x-ray is from today.; ; Contrast dose: 75 cc's of Isovue 370 are administered intravenously.; ; CT technique: Helical scanning is acquired and overlapping 1.5 mm and contiguous; 3 mm axial images are reformatted. In addition, a 3-D work station is deployed; to generate thick slab maximum intensity projection images in sagittal and; coronal imaging projections.; ; CT pulmonary angiographic findings: There is good opacification of the pulmonary; arterial tree. There is no CT evidence of pulmonary embolism. Maximum intensity; projection images show no vessel cutoff or filling defect to suggest a pulmonary; arterial thrombus. The thoracic aorta enhances homogeneously and the aorta is; normal in caliber and course. There is no evidence of dissection or aneurysm.; No pleural or pericardial effusion is seen. No hilar or mediastinal mass or; adenopathy is observed. There is a hiatal hernia noted behind the heart. The; lung ennis show no evidence of infiltrate, mass, atelectasis or nodule. The; patient is status post gastric bypass. The visualized upper abdominal structures; are otherwise unremarkable.; ; Impression:; ; 1. No CT evidence of pulmonary embolism.; ; 2. Patient status post gastric bypass.; ; 3. Small sliding-type hiatal hernia noted.; ; ; Signed by; Zack Guillen MD 08/19/2016 03:06 P; Radiology Order: ECG WITH READING ER PHYS Test: ECG WITH READING ER PHYS REASON FOR EXAMINATION: CHEST PRESSURE; Stationary ECG Study; [facility] - ED; ; Test Date: 2016-08-19; Pat Name: RANDA STRANGE Department:; Room: -; Gender: F Pricing Manager: annalee; : 1965 Requested By: MAYRA Tijerina; Order Number: [id number] Reading MD: Lucero Loyola; Measurements; Intervals [place]; Rate: 62 P: 52; FL: 186 QRS: 5; QRSD: 107 T: 20; QT: 411; QTc: 419; Interpretive Statements; SINUS RHYTHM; ; Electronically Signed On 08-20-2016 10:49:48 EST by Lucero Loyola; Outcome: 19:02 Discharge ordered by Provider. br1 19:17 Discharge Assessment: Patient awake, alert and oriented x 3. No cognitive and/or tm5 functional deficits noted. Patient verbalized understanding of disposition instructions. patient administered narcotics - no. The following High Risk Discharge criteria are identified: None. Discharged to home ambulatory, with family. Condition: good Condition: stable. Discharge instructions given to patient, Instructed on discharge instructions, follow up and referral plans. Demonstrated understanding of instructions, medications, Pt was receptive of discharge instructions/ teaching. Property :Personal belongings accompany Pt. 19:18 CT Study completed. tm5 19:18 Patient left the ED. tm5 Signatures: Dispatcher [employer] EDMS Alycia Mckeon, Cheese Specialist Unit deg Cuco, Arielle, Reg Reg gb Mayra Borrego MD MD br1 Alice LaiRN RN rs3 Trini Goodman RN RN ms18 Figueroa Fink, MEDIA PRODUCER MEDIA PRODUCER jrd Kerrie Holden jp5 Madeleine YanRN RN tm5 Corrections: (The following items were deleted from the chart) 12:12 12:00 Social history Smoking status: rs3 rs3 Chart Complete MTDD
--- NOTE | 2016-08-25 15:06 | EDDOCDS ---
Physician Documentation [facility] Name: Randa Strange Age: 51 yrs Sex: Female : 1965 Arrival Date: 08/19/2016 Time: 11:50 Bed OBSERVATION Private MD: Disposition: 08/19/16 19:02 Discharged to Home/Self Care. Impression: Chest pain, unspecified. - Condition is Stable. - Discharge Instructions: Nonspecific Chest Pain. - Medication Reconciliation, Local Pharmacy Hours form. - Follow up: Candice Anton; When: 1 - 2 days; Reason: Recheck today's complaints. Follow up: Monse Hunt DO; When: 4 - 5 days; Reason: Recheck today's complaints. - Problem is new. - Symptoms are resolved. - Notes: You were seen in the ED for chest pain. Bloodwork along with EKG of the heart, chest Xray and CT scan of the chest showed no acute findings. We have consulted with Cardiology as well. As you are feeling better you may return home. Please call Dr. Anton to arrange to be seen for ongoing care and recheck. Please also call Dr. Hunt to arrange primary care follow up as well. Return to the ED for any return of chest pain, trouble breathing, lightheadedness, loss of consciousness or any other concerns. Historical: - Allergies: Bees; Blue Dye; Honey; Imitrex; Latex; [id number] Antimigraine Agents; - Home Meds: 1. aspirin 81 mg Oral tab 1 tab once daily 2. Astepro 0.15 % (205.5 mcg) nasal spry 2 sprays 2 times per day 3. levothyroxine 175 mcg Oral tab 1 tab once daily 4. Protonix 40 mg Oral TbEC 1 tab once daily 5. Singulair 10 mg Oral tab 1 tab once daily 6. Wellbutrin XL 150 mg Oral Tb24 bid - PMHx: GERD; Hypothyroidism; Seasonal Allergies; - PSHx: Hysterectomy; Appendectomy; Cholecystectomy; Gastric Bypass; Plantar Fasciotomy; - Social history: Smoking status: Patient states was never smoker of tobacco. No barriers to communication noted, The patient speaks fluent Faroese. - : The pt / caregiver states he / she is not on anticoagulants. Home medication list is obtained from the patient. - Exposure Risk Screening:: None identified. Vital Signs: 08/19 12:11 BP 132 / 68; Pulse 65; Resp 18; Temp 98.5; Pulse Ox 100% on R/A; Weight 63.5 kg / rs3 139.99 lbs; Height 5 ft. 2 in. (157.48 cm); Pain 0/10; 12:22 BP 132 / 67 (auto/); rs3 12:23 Pulse 66 MON; Pulse Ox 100% ; rs3 12:52 BP 117 / 87 (auto/); rs3 12:53 Pulse 82 MON; Pulse Ox 98% ; rs3 13:07 BP 137 / 61 (auto/); rs3 13:09 Pulse 80 MON; Pulse Ox 100% ; rs3 13:22 BP 131 / 69 (auto/); rs3 13:22 Pulse 72 MON; Pulse Ox 98% ; rs3 13:37 BP 121 / 62 (auto/); rs3 13:38 Pulse 72 MON; Pulse Ox 100% ; rs3 13:52 BP 121 / 56 (auto/); rs3 13:53 Pulse 72 MON; Pulse Ox 96% ; rs3 14:07 BP 120 / 57 (auto/); rs3 14:08 Pulse 68 MON; Pulse Ox 99% ; rs3 14:22 BP 111 / 57 (auto/); rs3 14:23 Pulse 68 MON; Pulse Ox 99% ; rs3 14:37 BP 115 / 55 (auto/); rs3 14:38 Pulse 66 MON; Pulse Ox 98% ; rs3 14:52 BP 117 / 58 (auto/); rs3 14:53 Pulse 68 MON; Pulse Ox 98% ; rs3 15:07 BP 114 / 85 (auto/); rs3 15:08 Pulse 70 MON; Pulse Ox 99% ; rs3 15:22 BP 117 / 58 (auto/); rs3 15:23 Pulse 64 MON; Pulse Ox 98% ; rs3 15:37 BP 119 / 63 (auto/); rs3 15:38 Pulse 66 MON; Pulse Ox 98% ; rs3 15:52 BP 109 / 58 (auto/); rs3 15:53 Pulse 62 MON; Pulse Ox 98% ; rs3 16:07 BP 112 / 58 (auto/); rs3 16:08 Pulse 64 MON; Pulse Ox 99% ; rs3 16:22 BP 112 / 66 (auto/); rs3 16:23 Pulse 60 MON; Pulse Ox 99% ; rs3 16:37 BP 123 / 58 (auto/); rs3 16:38 Pulse 62 MON; Pulse Ox 99% ; rs3 16:52 BP 120 / 58 (auto/); rs3 16:53 Pulse 62 MON; Pulse Ox 99% ; rs3 17:07 BP 126 / 61 (auto/); rs3 17:07 Pulse 62 MON; Pulse Ox 98% ; rs3 17:22 BP 141 / 64 (auto/); rs3 17:23 Pulse 66 MON; Pulse Ox 98% ; rs3 12:11 Body Mass Index 25.61 (63.50 kg, 157.48 cm) rs3 MDM: 11:52 ECG WITH READING ER PHYS+CARDIAG ordered. EDMS 11:53 Stock Hanger/Pulse Ox/q 30 min VS ordered. sd1 11:53 IV Saline Lock ordered. sd1 11:53 Rhythm Strip to chart ordered. sd1 11:53 Undress patient appropriately for examination ordered. sd1 11:54 portable chest Ordered. EDMS 11:54 Basic Metabolic Profile Ordered. EDMS 11:54 CBC with Diff Ordered. EDMS 11:54 Cardiac Injury Profile Ordered. EDMS 11:54 Troponin Ordered. EDMS 12:27 Admit to ED Observation status ordered. br1 12:37 Admit to ED Observation status complete. deg 12:52 CBC with Diff Reviewed. br1 12:58 Basic Metabolic Profile Reviewed. br1 12:58 Cardiac Injury Profile Reviewed. br1 12:58 Troponin Reviewed. br1 12:59 Nitrostat 0.4 mg Sublingual every 5 minutes; hold if SBP<90mmHg.Document Pain Score br1 Response to Each Dose x3 ordered. 13:00 ECG WITH READING ER PHYS+CARDIAG ordered. EDMS 13:00 CT Chest Angio R/O PE Ordered. EDMS 13:27 Acetaminophen Tablet 650 mg PO once ordered. br1 13:36 [facility] [place] Payment Agreement was scanned into [employer] and attached to record. jp5 13:36 Financial registration complete. jp5 13:51 portable chest Reviewed. br1 13:52 Repeat EKG (put time details section) ordered. br1 13:52 Redraw CIP &Troponin (put time in details section) ordered. br1 14:26 Repeat EKG (put time details section) complete. deg 14:26 Redraw CIP &Troponin (put time in details section) complete. deg 14:27 ECG WITH READING ER PHYS ordered. EDMS 14:27 CARDIAC MARKER PANEL Ordered. EDMS 18:47 CARDIAC MARKER PANEL Reviewed. br1 18:47 portable chest Reviewed. br1 18:47 CT Chest Angio R/O PE Reviewed. br1 02 12:20 T-Sheet-- Draft Copy was scanned into [employer] and attached to record. gb 12:21 ECG/EKG was scanned into [employer] and attached to record. gb 12:21 Radiology Report was scanned into [employer] and attached to record. gb Administered Medications: 08/19 13:11 Drug: Nitrostat 0.4 mg [Nitrostat 0.4 mg sublingual tablet (1 tabs)] Route: Sublingual; ms18 13:22 Follow up: Response: Pain is resolved rs3 13:46 Drug: Acetaminophen 650 mg [acetaminophen 325 mg tablet (2 tabs)] Route: PO; rs3 Signatures: Dispatcher [employer] EDLucero Rosas MD MD sd1 Alycia Mckeon, Staffing Recruiter Unit deg Arielle [place], Reg Reg gb Kolby Borrego MD MD br1 Alice Lai,RN RN rs3 Kerrie Holden jp5 Madeleine Yan RN RN tm5 Trini Goodman RN ms18 The chart was reviewed and I authenticate all verbal orders and agree with the evaluation and treatment provided.Corrections: (The following items were deleted from the chart) 12:12 12:00 Social history Smoking status: rs3 rs3 Attachments: 13:36 [facility] Payment Agreement jp5 08/20 12:20 T-Sheet-- Draft Copy gb 12:21 ECG/EKG gb Chart Complete MTDD
--- NOTE | 2016-08-25 15:06 | EDDOCDS ---
Physician Documentation [facility] Name: Randa Strange Age: 51 yrs Sex: Female : 1965 Arrival Date: 08/19/2016 Time: 11:50 Bed OBSERVATION Private MD: Disposition: 08/19/16 19:02 Discharged to Home/Self Care. Impression: Chest pain, unspecified. - Condition is Stable. - Discharge Instructions: Nonspecific Chest Pain. - Medication Reconciliation, Local Pharmacy Hours form. - Follow up: Candice Anton; When: 1 - 2 days; Reason: Recheck today's complaints. Follow up: Monse Hunt DO; When: 4 - 5 days; Reason: Recheck today's complaints. - Problem is new. - Symptoms are resolved. - Notes: You were seen in the ED for chest pain. Bloodwork along with EKG of the heart, chest Xray and CT scan of the chest showed no acute findings. We have consulted with Cardiology as well. As you are feeling better you may return home. Please call Dr. Anton to arrange to be seen for ongoing care and recheck. Please also call Dr. Hunt to arrange primary care follow up as well. Return to the ED for any return of chest pain, trouble breathing, lightheadedness, loss of consciousness or any other concerns. Historical: - Allergies: Bees; Blue Dye; Honey; Imitrex; Latex; [id number] Antimigraine Agents; - Home Meds: 1. aspirin 81 mg Oral tab 1 tab once daily 2. Astepro 0.15 % (205.5 mcg) nasal spry 2 sprays 2 times per day 3. levothyroxine 175 mcg Oral tab 1 tab once daily 4. Protonix 40 mg Oral TbEC 1 tab once daily 5. Singulair 10 mg Oral tab 1 tab once daily 6. Wellbutrin XL 150 mg Oral Tb24 bid - PMHx: GERD; Hypothyroidism; Seasonal Allergies; - PSHx: Hysterectomy; Appendectomy; Cholecystectomy; Gastric Bypass; Plantar Fasciotomy; - Social history: Smoking status: Patient states was never smoker of tobacco. No barriers to communication noted, The patient speaks fluent Mongolian. - : The pt / caregiver states he / she is not on anticoagulants. Home medication list is obtained from the patient. - Exposure Risk Screening:: None identified. Vital Signs: 08/19 12:11 BP 132 / 68; Pulse 65; Resp 18; Temp 98.5; Pulse Ox 100% on R/A; Weight 63.5 kg / rs3 139.99 lbs; Height 5 ft. 2 in. (157.48 cm); Pain 0/10; 12:22 BP 132 / 67 (auto/); rs3 12:23 Pulse 66 MON; Pulse Ox 100% ; rs3 12:52 BP 117 / 87 (auto/); rs3 12:53 Pulse 82 MON; Pulse Ox 98% ; rs3 13:07 BP 137 / 61 (auto/); rs3 13:09 Pulse 80 MON; Pulse Ox 100% ; rs3 13:22 BP 131 / 69 (auto/); rs3 13:22 Pulse 72 MON; Pulse Ox 98% ; rs3 13:37 BP 121 / 62 (auto/); rs3 13:38 Pulse 72 MON; Pulse Ox 100% ; rs3 13:52 BP 121 / 56 (auto/); rs3 13:53 Pulse 72 MON; Pulse Ox 96% ; rs3 14:07 BP 120 / 57 (auto/); rs3 14:08 Pulse 68 MON; Pulse Ox 99% ; rs3 14:22 BP 111 / 57 (auto/); rs3 14:23 Pulse 68 MON; Pulse Ox 99% ; rs3 14:37 BP 115 / 55 (auto/); rs3 14:38 Pulse 66 MON; Pulse Ox 98% ; rs3 14:52 BP 117 / 58 (auto/); rs3 14:53 Pulse 68 MON; Pulse Ox 98% ; rs3 15:07 BP 114 / 85 (auto/); rs3 15:08 Pulse 70 MON; Pulse Ox 99% ; rs3 15:22 BP 117 / 58 (auto/); rs3 15:23 Pulse 64 MON; Pulse Ox 98% ; rs3 15:37 BP 119 / 63 (auto/); rs3 15:38 Pulse 66 MON; Pulse Ox 98% ; rs3 15:52 BP 109 / 58 (auto/); rs3 15:53 Pulse 62 MON; Pulse Ox 98% ; rs3 16:07 BP 112 / 58 (auto/); rs3 16:08 Pulse 64 MON; Pulse Ox 99% ; rs3 16:22 BP 112 / 66 (auto/); rs3 16:23 Pulse 60 MON; Pulse Ox 99% ; rs3 16:37 BP 123 / 58 (auto/); rs3 16:38 Pulse 62 MON; Pulse Ox 99% ; rs3 16:52 BP 120 / 58 (auto/); rs3 16:53 Pulse 62 MON; Pulse Ox 99% ; rs3 17:07 BP 126 / 61 (auto/); rs3 17:07 Pulse 62 MON; Pulse Ox 98% ; rs3 17:22 BP 141 / 64 (auto/); rs3 17:23 Pulse 66 MON; Pulse Ox 98% ; rs3 12:11 Body Mass Index 25.61 (63.50 kg, 157.48 cm) rs3 MDM: 11:52 ECG WITH READING ER PHYS+CARDIAG ordered. EDMS 11:53 Armored Car Guard And Driver/Pulse Ox/q 30 min VS ordered. sd1 11:53 IV Saline Lock ordered. sd1 11:53 Rhythm Strip to chart ordered. sd1 11:53 Undress patient appropriately for examination ordered. sd1 11:54 portable chest Ordered. EDMS 11:54 Basic Metabolic Profile Ordered. EDMS 11:54 CBC with Diff Ordered. EDMS 11:54 Cardiac Injury Profile Ordered. EDMS 11:54 Troponin Ordered. EDMS 12:27 Admit to ED Observation status ordered. br1 12:37 Admit to ED Observation status complete. deg 12:52 CBC with Diff Reviewed. br1 12:58 Basic Metabolic Profile Reviewed. br1 12:58 Cardiac Injury Profile Reviewed. br1 12:58 Troponin Reviewed. br1 12:59 Nitrostat 0.4 mg Sublingual every 5 minutes; hold if SBP<90mmHg.Document Pain Score br1 Response to Each Dose x3 ordered. 13:00 ECG WITH READING ER PHYS+CARDIAG ordered. EDMS 13:00 CT Chest Angio R/O PE Ordered. EDMS 13:27 Acetaminophen Tablet 650 mg PO once ordered. br1 13:36 [facility] Payment Agreement was scanned into [employer] and attached to record. jp5 13:36 Financial registration complete. jp5 13:51 portable chest Reviewed. br1 13:52 Repeat EKG (put time details section) ordered. br1 13:52 Redraw CIP &Troponin (put time in details section) ordered. br1 14:26 Repeat EKG (put time details section) complete. deg 14:26 Redraw CIP &Troponin (put time in details section) complete. deg 14:27 ECG WITH READING ER PHYS ordered. EDMS 14:27 CARDIAC MARKER PANEL Ordered. EDMS 18:47 CARDIAC MARKER PANEL Reviewed. br1 18:47 portable chest Reviewed. br1 18:47 CT Chest Angio R/O PE Reviewed. br1 02 12:20 T-Sheet-- Draft Copy was scanned into [employer] and attached to record. gb 12:21 ECG/EKG was scanned into [employer] and attached to record. gb 12:21 Radiology Report was scanned into [employer] and attached to record. gb Administered Medications: 08/19 13:11 Drug: Nitrostat 0.4 mg [Nitrostat 0.4 mg sublingual tablet (1 tabs)] Route: Sublingual; ms18 13:22 Follow up: Response: Pain is resolved rs3 13:46 Drug: Acetaminophen 650 mg [acetaminophen 325 mg tablet (2 tabs)] Route: PO; rs3 Signatures: Dispatcher [employer] EDLucero Rosas MD MD sd1 Alycia Mckeon, Side Framer Unit deg Arielle Norwood, Reg Reg gb Kolby Borrego MD MD br1 Alice Lai,RN RN rs3 Kerrie Holden jp5 Madeleine Yan RN RN tm5 Trini Goodman RN ms18 The chart was reviewed and I authenticate all verbal orders and agree with the evaluation and treatment provided.Corrections: (The following items were deleted from the chart) 12:12 12:00 Social history Smoking status: rs3 rs3 Attachments: 13:36 [facility] Payment Agreement jp5 08/20 12:20 T-Sheet-- Draft Copy gb 12:21 ECG/EKG gb Chart Complete MTDD
--- NOTE | 2016-08-25 15:06 | EDDOCDS ---
Nurse's Notes [facility] Name: Randa Strange Age: 51 yrs Sex: Female : 1965 Arrival Date: 08/19/2016 Time: 11:50 Bed OBSERVATION Private MD: Diagnosis: Chest pain, unspecified Presentation: 08/19 11:53 Presenting complaint: EMS states: chest pressure/pain at school. Aspirin given by rs3 school nurse. had previous similar episodes. had been referred to cardiology/neurology previously. 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 325 given. Adult Sepsis Screening: The patient does not have new or worsening altered mentation. Patient's respiratory rate is less than 22. Systolic blood pressure is greater than 100. Patient has a qSOFA score of 0- Negative Sepsis Screen. Suicide/Homicide risk assessment- the patient denies having any suicidal and/or homicidal ideations and does not present with any other emotional, behavioral or mental health complaints. Status: Patient is not a manager field service or dependent. Transition of care: patient was not received from another setting of care. 11:53 Acuity: HOLLY Level 3 3 11:53 Method Of Arrival: Ambulance rs3 Triage Assessment: 12:11 General: Appears in no apparent distress. Pain: Denies pain. HIV screening NA for this rs3 visit Offered previously. Cardiovascular: Chest pain is described as vague, radiates Does not radiate. episodes are intermittent began 1 hour prior to arrival. Historical: - Allergies: Bees; Blue Dye; Honey; Imitrex; Latex; [id number] Antimigraine Agents; - Home Meds: 1. aspirin 81 mg Oral tab 1 tab once daily 2. Astepro 0.15 % (205.5 mcg) nasal spry 2 sprays 2 times per day 3. levothyroxine 175 mcg Oral tab 1 tab once daily 4. Protonix 40 mg Oral TbEC 1 tab once daily 5. Singulair 10 mg Oral tab 1 tab once daily 6. Wellbutrin XL 150 mg Oral Tb24 bid - PMHx: GERD; Hypothyroidism; Seasonal Allergies; - PSHx: Hysterectomy; Appendectomy; Cholecystectomy; Gastric Bypass; Plantar Fasciotomy; - Social history: Smoking status: Patient states was never smoker of tobacco. No barriers to communication noted, The patient speaks fluent Azeri. - : The pt / caregiver states he / she is not on anticoagulants. Home medication list is obtained from the patient. - Exposure Risk Screening:: None identified. Screenin:24 Screening information is obtained from the patient. Fall risk: No risks identified. rs3 Assistance ADL's: requires no assistance with activities of daily living. Abuse/DV Screen: The patient / caregiver reports he/she is: not in a situation that causes fear, pain or injury. Nutritional screening: No deficits noted. Advance Directives: Currently, there is no health care proxy. There is no active DNR order. home support is adequate. Assessment: 12:12 General: Appears in no apparent distress, Behavior is appropriate for age, cooperative. rs3 Pain: Denies pain. Neurological: Level of Consciousness is awake, alert, Oriented to person, place, time. Cardiovascular: Rhythm is regular. Respiratory: Airway is patent Respiratory effort is even, unlabored, Respiratory pattern is regular, symmetrical. Respiratory: Breath sounds are clear bilaterally. Derm: Skin is pink, warm & dry. 13:22 General: Appears in no apparent distress, reports of chest pain/dizziness, hard time rs3 swallowing. attending provider made aware. ordered Nitrostat given with complete relief. EKG obtained. reports of headache from Nitrostat. will notify provider. 14:02 General: Appears in no apparent distress, Behavior is cooperative, patient resting rs3 comfortable. Tylenol given for headache. denies of chest pain. waiting on CT angio results. . 15:15 General: Appears in no apparent distress, denies of pain/headache. resting comfortable. rs3 requesting water. given to her. headache resolved with Tylenol. updated patient on repeat card jono. family at bedside. 16:02 General: Appears in no apparent distress, comfortable, Behavior is appropriate for age, ms18 cooperative, pleasant. Pain: Denies pain. Neurological: Level of Consciousness is awake, alert, obeys commands, Oriented to person, place, time. Respiratory: Derm: Skin is pink, warm & dry. 17:29 General: Appears in no apparent distress, Behavior is appropriate for age, cooperative, rs3 denies of chest pain/dizziness/sob. family at bedside. waiting for repeat card jono. . 18:20 General: Appears in no apparent distress, Behavior is appropriate for age, denies of rs3 pain/distress. reports of mild-moderated headache. repeat card jono sent. Vital Signs: 12:11 BP 132 / 68; Pulse 65; Resp 18; Temp 98.5; Pulse Ox 100% on R/A; Weight 63.5 kg; Height rs3 5 ft. 2 in. (157.48 cm); Pain 0/10; 12:22 BP 132 / 67 (auto/); rs3 12:23 Pulse 66 MON; Pulse Ox 100% ; rs3 12:52 BP 117 / 87 (auto/); rs3 12:53 Pulse 82 MON; Pulse Ox 98% ; rs3 13:07 BP 137 / 61 (auto/); rs3 13:09 Pulse 80 MON; Pulse Ox 100% ; rs3 13:22 BP 131 / 69 (auto/); rs3 13:22 Pulse 72 MON; Pulse Ox 98% ; rs3 13:37 BP 121 / 62 (auto/); rs3 13:38 Pulse 72 MON; Pulse Ox 100% ; rs3 13:52 BP 121 / 56 (auto/); rs3 13:53 Pulse 72 MON; Pulse Ox 96% ; rs3 14:07 BP 120 / 57 (auto/); rs3 14:08 Pulse 68 MON; Pulse Ox 99% ; rs3 14:22 BP 111 / 57 (auto/); rs3 14:23 Pulse 68 MON; Pulse Ox 99% ; rs3 14:37 BP 115 / 55 (auto/); rs3 14:38 Pulse 66 MON; Pulse Ox 98% ; rs3 14:52 BP 117 / 58 (auto/); rs3 14:53 Pulse 68 MON; Pulse Ox 98% ; rs3 15:07 BP 114 / 85 (auto/); rs3 15:08 Pulse 70 MON; Pulse Ox 99% ; rs3 15:22 BP 117 / 58 (auto/); rs3 15:23 Pulse 64 MON; Pulse Ox 98% ; rs3 15:37 BP 119 / 63 (auto/); rs3 15:38 Pulse 66 MON; Pulse Ox 98% ; rs3 15:52 BP 109 / 58 (auto/); rs3 15:53 Pulse 62 MON; Pulse Ox 98% ; rs3 16:07 BP 112 / 58 (auto/); rs3 16:08 Pulse 64 MON; Pulse Ox 99% ; rs3 16:22 BP 112 / 66 (auto/); rs3 16:23 Pulse 60 MON; Pulse Ox 99% ; rs3 16:37 BP 123 / 58 (auto/); rs3 16:38 Pulse 62 MON; Pulse Ox 99% ; rs3 16:52 BP 120 / 58 (auto/); rs3 16:53 Pulse 62 MON; Pulse Ox 99% ; rs3 17:07 BP 126 / 61 (auto/); rs3 17:07 Pulse 62 MON; Pulse Ox 98% ; rs3 17:22 BP 141 / 64 (auto/); rs3 17:23 Pulse 66 MON; Pulse Ox 98% ; rs3 12:11 Body Mass Index 25.61 (63.50 kg, 157.48 cm) rs3 Vitals: 12:11 Log In Time N/A - ambulance arrival. rs3 ED Course: 11:50 Patient visited by Alycia Mckeon Lcac Operator. deg 11:50 Patient moved to Waiting deg 11:51 Patient moved to 6 deg 11:55 Triage Initiated rs3 11:59 Mayra Borrego MD is Attending Physician. br1 12:03 Patient visited by Figueroa Fink PCA. jrd 12:03 EKG done. (by ED staff). Reviewed by Mayra Borrego MD. jrd 12:06 Patient visited by Mayra Borrego MD. br1 12:24 Basic Metabolic Profile Sent. rs3 12:24 CBC with Diff Sent. rs3 12:24 Cardiac Injury Profile Sent. rs3 12:24 Troponin Sent. rs3 12:25 Inserted saline lock: 20 gauge in left antecubital area and blood collected. Labs rs3 drawn. (by ED staff). 12:46 Patient visited by Alice Lai RN. rs3 13:11 EKG done. (by ED staff). Reviewed by Mayra Borrego MD. ms18 13:18 portable chest Returned. EDMS 13:22 Patient visited by Alice Lai RN. rs3 13:36 [facility] [place] was scanned into [facility] and attached to record. jp5 13:53 Patient visited by Mayra Borrego MD. br1 14:30 Patient visited by Trini Goodman RN. ms18 14:30 Patient moved to OBSERVATION ms18 14:56 portable chest Returned. EDMS 14:56 CT Chest Angio R/O PE Returned. EDMS 16:02 Patient visited by Trini Goodman,APOORVA. ms18 16:59 Patient visited by Alice Lai,APOORVA. rs3 17:29 Patient visited by Alice Lai RN. rs3 18:04 EKG done. (by ED staff). Reviewed by Mayra Borrego MD. jrd 19:01 Candice Anton is Referral Physician. br1 19:02 Monse Hunt DO is Referral Physician. br1 19:16 Patient visited by Madeleine Yan,APOORVA. tm5 19:18 The patient / caregiver is instructed regarding the plan of care and ED course. tm5 19:18 No procedures done that require assistance. tm5 0203 09:55 EKG-ADULT Returned. EDMS 11:11 ECG WITH READING ER PHYS Returned. EDMS 11:12 EKG-ADULT Returned. EDMS 12:20 T-Sheet-- Draft Copy was scanned into [facility] and attached to record. gb 12:21 ECG/EKG was scanned into [facility] and attached to record. gb 12:21 Radiology Report was scanned into [employer] and attached to record. gb Administered Medications: 02 13:11 Drug: Nitrostat 0.4 mg [Nitrostat 0.4 mg sublingual tablet (1 tabs)] Route: Sublingual; ms18 13:22 Follow up: Response: Pain is resolved rs3 13:46 Drug: Acetaminophen 650 mg [acetaminophen 325 mg tablet (2 tabs)] Route: PO; rs3 Order Results: Lab Order: Basic Metabolic Profile; SPEC'M 08/19/16 12:17 Test: GLUCOSE, FASTING; Value: 92; Range: 70-105; Units: MG/DL; Status: F Test: BLOOD UREA NITROGEN; Value: 10; Range: 7-18; Units: MG/DL; Status: F Test: CREATININE FOR GFR; Value: 0.70; Range: 0.55-1.02; Units: MG/DL; Status: F Test: GLOMERULAR FILTRATION RATE; Value: > 60.0; Range: >58; Status: F Test: SODIUM LEVEL; Value: 142; Range: 136-145; Units: MEQ/L; Status: F Test: POTASSIUM SERUM; Value: 3.5; Range: 3.5-5.1; Units: MEQ/L; Status: F Test: CHLORIDE LEVEL; Value: 107; Range: 98-107; Units: MEQ/L; Status: F Test: CARBON DIOXIDE LEVEL; Value: 30; Range: 21-32; Units: MEQ/L; Status: F Test: ANION GAP; Value: 5; Range: 8-16; Abnormal: Below low normal; Units: MEQ/L; Status: F Test: CALCIUM LEVEL; Value: 8.2; Range: 8.5-10.1; Abnormal: Below low normal; Units: MG/DL; Status: F Test Note: ; Units are mL/min/1.73 m2 Chronic Kidney Disease Staging per NKF: Stage I & II GFR >=60 Normal to Mildly Decreased Stage III GFR 30-59 Moderately Decreased Stage IV GFR 15-29 Severely Decreased Stage V GFR <15 Very Little GFR Left ESRD GFR <15 on AERONAUTICAL ENGINEER Lab Order: CBC with Diff; SPEC'M 08/19/16 12:17 Test: WHITE BLOOD COUNT; Value: 6.9; Range: 4.0-10.0; Units: K/mm3; Status: F Test: RED BLOOD COUNT; Value: 3.79; Range: 4.00-5.40; Abnormal: Below low normal; Units: M/mm3; Status: F Test: HEMOGLOBIN; Value: 12.3; Range: 12.0-16.0; Units: g/dl; Status: F Test: HEMATOCRIT; Value: 36.4; Range: 36.0-47.0; Units: %; Status: F Test: MEAN CORPUSCULAR VOLUME; Value: 96.0; Range: 80.0-96.0; Units: fl; Status: F Test: MEAN CORPUSCULAR HEMOGLOBIN; Value: 32.6; Range: 27.0-33.0; Units: pg; Status: F Test: MEAN CORPUSCULAR HGB CONC; Value: 33.9; Range: 32.0-36.5; Units: g/dl; Status: F Test: RED CELL DISTRIBUTION WIDTH; Value: 11.7; Range: 11.5-14.5; Units: %; Status: F Test: PLATELET COUNT, AUTOMATED; Value: 253; Range: 150-450; Units: k/mm3; Status: F Test: NEUTROPHILS %; Value: 74.4; Range: 36.0-66.0; Abnormal: Above high normal; Units: %; Status: F Test: LYMPH %; Value: 17.8; Range: 24.0-44.0; Abnormal: Below low normal; Units: %; Status: F Test: MONO %; Value: 4.2; Range: 0.0-5.0; Units: %; Status: F Test: EOS %; Value: 1.4; Range: 0.0-3.0; Units: %; Status: F Test: BASO %; Value: 0.2; Range: 0.0-1.0; Units: %; Status: F Test: LARGE UNSTAINED CELL %; Value: 2.0; Range: 0.0-4.0; Units: %; Status: F Test: NEUTROPHILS #; Value: 5.2; Range: 1.8-7.7; Units: K/mm3; Status: F Test: LYMPH #; Value: 1.2; Range: 1.5-4.5; Abnormal: Below low normal; Units: K/mm3; Status: F Test: MONO #; Value: 0.3; Range: 0.0-0.8; Units: K/mm3; Status: F Test: EOS #; Value: 0.1; Range: 0.0-0.50; Units: K/mm3; Status: F Test: BASO #; Value: 0.0; Range: 0.0-0.2; Units: K/mm3; Status: F Test: LARGE UNSTAINED CELL #; Value: 0.1; Range: 0.0-0.4; Units: K/mm3; Status: F Lab Order: Cardiac Injury Profile; SPEC'M 08/19/16 12:17 Test: CPK CREATINE PHOSPHOKINASE; Value: 68; Range: 26-192; Units: U/L; Status: F Test: CK-MB VALUE MASS; Value: 1.6; Range: 0.0-3.6; Units: NG/ML; Status: F Test: MB/CK RELATIVE INDEX; Value: 2.35; Range: < OR =4; Status: F Test Note: ; DIAGNOSIS CRITERIA MMB ng/ml Relative Index (RI) NON-AMI < or = 5 N/A RODAS ZONE > 5 < or = 4 AMI > 5 > 4 Lab Order: Troponin; SPEC'M 08/19/16 12:17 Test: TROPONIN I; Value: < 0.02; Range: < 0.10; Units: NG/ML; Status: F Test Note: ; Troponin I Reference Interval for Siemens Counselytics LOCI: 99th Percentile= 0.00-0.045 ng/ml Risk Stratification: <= 0.10 ng/ml Decreased Risk for Adverse Clinical Events. 0.10-1.50 ng/ml Increased Risk for Adverse Clinical Events. Evaluation of additional criterion and/or repeat testing in 2-6 hours is suggested to rule out myocardial damage. >= 1.50 ng/ml Indicative of Myocardial Injury. Lab Order: CARDIAC MARKER PANEL; SPEC'M 08/19/16 17:55 Test: CPK CREATINE PHOSPHOKINASE; Value: 53; Range: 26-192; Units: U/L; Status: F Test: CK-MB VALUE MASS; Value: 1.0; Range: 0.0-3.6; Units: NG/ML; Status: F Test: MB/CK RELATIVE INDEX; Value: 1.88; Range: < OR =4; Status: F Test: TROPONIN I; Value: < 0.02; Range: < 0.10; Units: NG/ML; Status: F Test Note: ; DIAGNOSIS CRITERIA MMB ng/ml Relative Index (RI) NON-AMI < or = 5 N/A RODAS ZONE > 5 < or = 4 AMI > 5 > 4 Radiology Order: EKG-ADULT Test: EKG-ADULT REASON FOR EXAMINATION: Chest Pain; Stationary ECG Study; [facility] - ED; ; Test Date: 2016-08-19; Pat Name: RANDA STRANGE Department:; Room: -; Gender: F Dean Of [employer]: annalee; : 1965 Requested By: Lucero Loyola; Order Number: [id number] Reading MD: Lucero Loyola; Measurements; Intervals [place]; Rate: 62 P: 57; MO: 173 QRS: 9; QRSD: 118 T: 23; QT: 408; QTc: 416; Interpretive Statements; SINUS RHYTHM; MODERATE INTRAVENTRICULAR CONDUCTION DELAY; NSTTW ABNORMALITY; SIMILAR 06/14/16; Electronically Signed On 08-20-2016 9:18:38 EST by Lucero Loyola; Radiology Order: portable chest Test: portable chest REASON FOR EXAMINATION: Chest Pain; PORTABLE CHEST:; ; AP portable view of the chest is performed and compared to a prior study of; 06/14/2016.; ; There is no evidence of acute infiltrate or pulmonary edema. The heart is normal; in size. The mediastinal silhouette is unremarkable. Visualized osseous; structures are intact.; ; IMPRESSION:; ; No acute infiltrate.; ; ; Signed by; Roman Rodas MD 08/19/2016 02:34 P; Radiology Order: EKG-ADULT Test: EKG-ADULT REASON FOR EXAMINATION: Chest Pain; Stationary ECG Study; [facility] - ED; ; Test Date: 2016-08-19; Pat Name: RANDA STRANGE Department:; Room: -; Gender: F Dean Of [employer]:; : 1965 Requested By: MAYRA Tijerina; Order Number: [id number] Reading MD: Lucero Loyola; Measurements; Intervals [place]; Rate: 78 P: 58; MO: 177 QRS: 9; QRSD: 108 T: 18; QT: 385; QTc: 440; Interpretive Statements; SINUS RHYTHM; INCREASED RATE 08/19/16 18:00; Electronically Signed On 08-20-2016 10:50:50 EST by Lucero Loyola; Radiology Order: CT Chest Angio R/O PE Test: CT Chest Angio R/O PE REASON FOR EXAMINATION: Chest Pain; CT pulmonary angiogram: With IV contrast.; ; History: Chest pain.; ; Comparison studies: No comparison chest CT studies.; ; Comparison chest x-ray is from today.; ; Contrast dose: 75 cc's of Isovue 370 are administered intravenously.; ; CT technique: Helical scanning is acquired and overlapping 1.5 mm and contiguous; 3 mm axial images are reformatted. In addition, a 3-D work station is deployed; to generate thick slab maximum intensity projection images in sagittal and; coronal imaging projections.; ; CT pulmonary angiographic findings: There is good opacification of the pulmonary; arterial tree. There is no CT evidence of pulmonary embolism. Maximum intensity; projection images show no vessel cutoff or filling defect to suggest a pulmonary; arterial thrombus. The thoracic aorta enhances homogeneously and the aorta is; normal in caliber and course. There is no evidence of dissection or aneurysm.; No pleural or pericardial effusion is seen. No hilar or mediastinal mass or; adenopathy is observed. There is a hiatal hernia noted behind the heart. The; lung ennis show no evidence of infiltrate, mass, atelectasis or nodule. The; patient is status post gastric bypass. The visualized upper abdominal structures; are otherwise unremarkable.; ; Impression:; ; 1. No CT evidence of pulmonary embolism.; ; 2. Patient status post gastric bypass.; ; 3. Small sliding-type hiatal hernia noted.; ; ; Signed by; Zack Guillen MD 08/19/2016 03:06 P; Radiology Order: ECG WITH READING ER PHYS Test: ECG WITH READING ER PHYS REASON FOR EXAMINATION: CHEST PRESSURE; Stationary ECG Study; [facility] - ED; ; Test Date: 2016-08-19; Pat Name: RANDA STRANGE Department:; Room: -; Gender: F Dean Of [employer]: annalee; : 1965 Requested By: MAYRA Tijerina; Order Number: [id number] Reading MD: Lucero Loyola; Measurements; Intervals [place]; Rate: 62 P: 52; MO: 186 QRS: 5; QRSD: 107 T: 20; QT: 411; QTc: 419; Interpretive Statements; SINUS RHYTHM; ; Electronically Signed On 08-20-2016 10:49:48 EST by Lucero Loyola; Outcome: 19:02 Discharge ordered by Provider. br1 19:17 Discharge Assessment: Patient awake, alert and oriented x 3. No cognitive and/or tm5 functional deficits noted. Patient verbalized understanding of disposition instructions. patient administered narcotics - no. The following High Risk Discharge criteria are identified: None. Discharged to home ambulatory, with family. Condition: good Condition: stable. Discharge instructions given to patient, Instructed on discharge instructions, follow up and referral plans. Demonstrated understanding of instructions, medications, Pt was receptive of discharge instructions/ teaching. Property :Personal belongings accompany Pt. 19:18 CT Study completed. tm5 19:18 Patient left the ED. tm5 Signatures: Dispatcher [employer] EDMS Alycia Mckeon, Lcac Operator Unit deg Cuco, Arielle, Reg Reg gb Mayra Borrego MD MD br1 Alice LaiRN RN rs3 Trini Goodman RN RN ms18 Figueroa Fink, PUBLIC HEALTH CLINICAL NURSE SPECIALIST PUBLIC HEALTH CLINICAL NURSE SPECIALIST jrd Kerrie Holden jp5 Madeleine YanRN RN tm5 Corrections: (The following items were deleted from the chart) 12:12 12:00 Social history Smoking status: rs3 rs3 Chart Complete MTDD
== END 2016-08-19 19:18 | disposition home or self-care (01) ==
LOC: M ED 11:50
DX: R07.9 Chest pain, unspecified (principal); R06.02 Shortness of breath; K21.9 Gastro-esophageal reflux disease without esophagitis; E03.9 Hypothyroidism, unspecified; J30.2 Other seasonal allergic rhinitis; Z98.84 Bariatric surgery status; Z79.899 Other long term (current) drug therapy; Z79.82 Long term (current) use of aspirin; Z91.040 Latex allergy status; Z91.02 Food additives allergy status; Z91.018 Allergy to other foods; Z91.030 Bee allergy status; Z88.8 Allergy status to other drugs, medicaments and biological substances
CPT/HCPCS: 36415; 71010; 71275; 80048; 82550; 82553; 85025; 93005; 93041; 99284; Q9967

== ENCOUNTER → 2016-11-08 | Outpatient (CLI) | payer BC, OTHER ==
[~2016-11-08] MED LIST changes: +METHACHOLINE KIT (J7674) INH ONE
--- NOTE | 2016-11-08 09:38 | PFTRPT ---
Site: [facility], [address] [place], [address] ID: [id number] Name: DERICKJean MARIELARITA BOWMAN Doctor: Monse Hunt DO Tech: Asia MIRANDA RRT Age: 51 Sex: Female Race: Height: 62.00 Inches Weight: 143.00 Lbs BSA: 1.66 Diagnosis: SOB of albuterol for postbronchodilator. Pre-Bronch Post-Bronch Pred Actual %Pred Actual %Chng SPIROMETRY FVC (L) 3.30 3.39 102 3.34 -1 FEV1 (L) 2.62 2.98 113 2.82 -5 FEV1/FVC (%) 80 88 110 84 -4 FEF 25% (L/sec) 5.01 6.90 137 6.06 -12 FEF 50% (L/sec) 3.92 5.81 148 4.36 -24 FEF 75% (L/sec) 1.44 1.84 127 1.25 -32 FEF 25-75% (L/sec) 2.65 4.45 167 3.27 -26 FEF Max (L/sec) 6.44 6.91 107 6.07 -12 FIVC (L) 3.21 3.04 -5 FIF 50% (L/sec) 3.56 3.19 89 4.00 25 FIF Max (L/sec) 4.01 4.20 4
== END ==
LOC: M CARPUL 08:36
PROVIDERS: ATTEND Internal Medicine
DX: R06.02 Shortness of breath (principal)

== ENCOUNTER → 2017-01-17 | Outpatient (CLI) | payer BC, OTHER ==
[~2017-01-17] MED LIST changes: -AUGM875T27 PO; +AUGM875T28 PO; -MELA0.02 PO; +MELA3TAB49 PO; -METHACHOLINE KIT (J7674) INH ONE
--- NOTE | 2017-01-17 14:58 | REP ---
Clinical: Pain. Technique: AP, lateral, bilateral oblique views of the left fourth toe. Findings: Nondisplaced intra-articular fracture at the base of the fourth toe proximal phalanx noted. Underlying age-related degenerative changes identified. Impression: Nondisplaced fracture at the base of the fourth proximal phalanx. Signed by Johnson Carias MD 01/17/2017 02:49 P
== END ==
LOC: M ADAMS 13:31
PROVIDERS: ATTEND Physician Assistant
DX: S92.515A Nondisplaced fracture of proximal phalanx of left lesser toe(s), initial encounter for closed fracture (principal); X58.XXXA Exposure to other specified factors, initial encounter; Y92.9 Unspecified place or not applicable; Y93.9 Activity, unspecified; Y99.9 Unspecified external cause status

== ENCOUNTER → 2017-07-22 | Outpatient (CLI) | payer BC | LOC: M PAIN 10:30 | DX: G89.29 Other chronic pain (principal); M51.16 Intervertebral disc disorders with radiculopathy, lumbar region; M46.1 Sacroiliitis, not elsewhere classified; M48.061 Spinal stenosis, lumbar region without neurogenic claudication; K44.9 Diaphragmatic hernia without obstruction or gangrene; K21.9 Gastro-esophageal reflux disease without esophagitis; F32.9 Major depressive disorder, single episode, unspecified; F41.9 Anxiety disorder, unspecified; Z88.8 Allergy status to other drugs, medicaments and biological substances; Z88.7 Allergy status to serum and vaccine; Z91.030 Bee allergy status; Z79.82 Long term (current) use of aspirin; Z79.899 Other long term (current) drug therapy; Z86.73 Personal history of transient ischemic attack (TIA), and cerebral infarction without residual deficits | CPT/HCPCS: G0463 ==

== ENCOUNTER → 2017-08-23 | Outpatient (CLI) | payer BC ==
[~2017-08-23] MED LIST changes: -ALLE12TA31 PO; -ASTE0.15; -AUGM875T28 PO; -BIOT50004 PO; -CENTTAB47 PO; -CITROCAL PO; -HYDR-3713 PO; -HYDR-3716 PO; +ISOVUE-M 300 61% 15ML VIAL (Q9967) As Ordered; +LIDOCAINE 1% SDV INJ 30 ML VIAL As Ordered; -MELA3TAB49 PO; -PROBCAP4 PO; -PROT1TAB2 PO; -SING10TA32 PO; -SYNT100T PO; -TYLE325T5 PO; -VITA200015 PO; -VITA250L PO; -asmanex INH; +diazePAM 5 MG TAB As Ordered; +methylPREDNISolone SUSP 40 MG/ML (DEPO-medrol) VIAL (J1030) As Ordered; +oxyCODONE 5MG TAB As Ordered
== END ==
LOC: M PAIN 15:00
DX: G89.29 Other chronic pain (principal); M51.16 Intervertebral disc disorders with radiculopathy, lumbar region; K44.9 Diaphragmatic hernia without obstruction or gangrene; E07.9 Disorder of thyroid, unspecified; F32.9 Major depressive disorder, single episode, unspecified; F41.9 Anxiety disorder, unspecified; Z79.82 Long term (current) use of aspirin; Z79.899 Other long term (current) drug therapy; Z88.8 Allergy status to other drugs, medicaments and biological substances; Z88.7 Allergy status to serum and vaccine; Z91.030 Bee allergy status
CPT/HCPCS: J1030

== ENCOUNTER → 2017-09-15 | Outpatient (CLI) | payer BC | LOC: M PAIN 10:30 | DX: M51.16 Intervertebral disc disorders with radiculopathy, lumbar region (principal); M46.1 Sacroiliitis, not elsewhere classified; M48.061 Spinal stenosis, lumbar region without neurogenic claudication; E07.9 Disorder of thyroid, unspecified; Z79.82 Long term (current) use of aspirin; Z79.899 Other long term (current) drug therapy; Z88.8 Allergy status to other drugs, medicaments and biological substances; Z91.030 Bee allergy status | CPT/HCPCS: G0463 ==

== ENCOUNTER → 2017-10-12 | Outpatient (CLI) | payer BC | LOC: M PAIN 08:45 | DX: G89.29 Other chronic pain (principal); M51.16 Intervertebral disc disorders with radiculopathy, lumbar region; E07.9 Disorder of thyroid, unspecified; F32.9 Major depressive disorder, single episode, unspecified; F41.9 Anxiety disorder, unspecified; Z79.82 Long term (current) use of aspirin; Z79.899 Other long term (current) drug therapy; Z88.8 Allergy status to other drugs, medicaments and biological substances; Z88.7 Allergy status to serum and vaccine; Z91.030 Bee allergy status; Z98.84 Bariatric surgery status; Z86.73 Personal history of transient ischemic attack (TIA), and cerebral infarction without residual deficits | CPT/HCPCS: J1030 ==

== ENCOUNTER → 2017-10-26 | Outpatient (CLI) | payer BC | LOC: M PAIN 08:45 | DX: M51.16 Intervertebral disc disorders with radiculopathy, lumbar region (principal); M48.061 Spinal stenosis, lumbar region without neurogenic claudication; E07.9 Disorder of thyroid, unspecified; K21.9 Gastro-esophageal reflux disease without esophagitis; Z79.82 Long term (current) use of aspirin; Z79.899 Other long term (current) drug therapy; Z91.030 Bee allergy status; Z88.8 Allergy status to other drugs, medicaments and biological substances | CPT/HCPCS: G0463 ==

== ENCOUNTER → 2017-11-23 | Outpatient (CLI) | payer BC ==
[~2017-11-23] MED LIST changes: +BUPIVACAINE HCL 0.25% 30 ML VIAL As Ordered; +dexameTHASONE 10 MG/1 ML VIAL PRES.FREE (J1100) As Ordered; -methylPREDNISolone SUSP 40 MG/ML (DEPO-medrol) VIAL (J1030) As Ordered
== END ==
LOC: M PAIN 13:00
DX: G89.29 Other chronic pain (principal); M51.16 Intervertebral disc disorders with radiculopathy, lumbar region; K44.9 Diaphragmatic hernia without obstruction or gangrene; K21.9 Gastro-esophageal reflux disease without esophagitis; F41.9 Anxiety disorder, unspecified; F32.9 Major depressive disorder, single episode, unspecified; Z86.73 Personal history of transient ischemic attack (TIA), and cerebral infarction without residual deficits; M50.20 Other cervical disc displacement, unspecified cervical region; Z79.82 Long term (current) use of aspirin; Z79.899 Other long term (current) drug therapy; Z91.030 Bee allergy status; Z88.8 Allergy status to other drugs, medicaments and biological substances
CPT/HCPCS: J1100

== ENCOUNTER → 2017-12-20 | Outpatient (CLI) | payer BC | LOC: M PAIN 11:15 | DX: M50.223 Other cervical disc displacement at C6-C7 level (principal); M51.16 Intervertebral disc disorders with radiculopathy, lumbar region; M46.92 Unspecified inflammatory spondylopathy, cervical region; Z79.82 Long term (current) use of aspirin; Z79.899 Other long term (current) drug therapy; Z88.8 Allergy status to other drugs, medicaments and biological substances; Z91.030 Bee allergy status; Z86.73 Personal history of transient ischemic attack (TIA), and cerebral infarction without residual deficits | CPT/HCPCS: G0463 ==

== ENCOUNTER → 2018-01-16 | Outpatient (CLI) | payer BC ==
[~2018-01-16] MED LIST changes: -BUPIVACAINE HCL 0.25% 30 ML VIAL As Ordered; -dexameTHASONE 10 MG/1 ML VIAL PRES.FREE (J1100) As Ordered; +methylPREDNISolone SUSP 40 MG/ML (DEPO-medrol) VIAL (J1030) As Ordered
== END ==
LOC: M PAIN 10:30
DX: G89.29 Other chronic pain (principal); M50.13 Cervical disc disorder with radiculopathy, cervicothoracic region; E07.9 Disorder of thyroid, unspecified; K21.9 Gastro-esophageal reflux disease without esophagitis; F32.9 Major depressive disorder, single episode, unspecified; F41.9 Anxiety disorder, unspecified; Z79.82 Long term (current) use of aspirin; Z79.899 Other long term (current) drug therapy; Z88.7 Allergy status to serum and vaccine; Z88.8 Allergy status to other drugs, medicaments and biological substances; Z91.030 Bee allergy status; Z98.84 Bariatric surgery status
CPT/HCPCS: J1030

== ENCOUNTER → 2018-02-13 | Outpatient (CLI) | payer BC | LOC: M PAIN 11:15 | DX: M50.13 Cervical disc disorder with radiculopathy, cervicothoracic region (principal); M51.16 Intervertebral disc disorders with radiculopathy, lumbar region; E07.9 Disorder of thyroid, unspecified; K21.9 Gastro-esophageal reflux disease without esophagitis; F32.9 Major depressive disorder, single episode, unspecified; F41.9 Anxiety disorder, unspecified; Z79.82 Long term (current) use of aspirin; Z79.899 Other long term (current) drug therapy; Z88.7 Allergy status to serum and vaccine; Z88.8 Allergy status to other drugs, medicaments and biological substances; Z91.030 Bee allergy status; Z86.73 Personal history of transient ischemic attack (TIA), and cerebral infarction without residual deficits; Z98.84 Bariatric surgery status | CPT/HCPCS: G0463 ==

== ENCOUNTER → 2018-04-19 | Outpatient (CLI) | payer BC | LOC: M PAIN 15:15 | DX: M50.13 Cervical disc disorder with radiculopathy, cervicothoracic region (principal); M51.16 Intervertebral disc disorders with radiculopathy, lumbar region; E07.9 Disorder of thyroid, unspecified; K21.9 Gastro-esophageal reflux disease without esophagitis; F32.9 Major depressive disorder, single episode, unspecified; F41.9 Anxiety disorder, unspecified; Z79.82 Long term (current) use of aspirin; Z79.899 Other long term (current) drug therapy; Z88.8 Allergy status to other drugs, medicaments and biological substances; Z88.7 Allergy status to serum and vaccine; Z91.030 Bee allergy status; Z98.84 Bariatric surgery status | CPT/HCPCS: G0463 ==

== ENCOUNTER → 2018-06-23 | Outpatient (CLI) | payer BC, OTHER ==
[2018-06-23 19:33] LABS: BLOOD UREA NITROGEN 13 MG/DL (7-18)
[2018-06-23 19:33] LABS: CREATININE FOR GFR 0.85 MG/DL (0.55-1.30); GLOMERULAR FILTRATION RATE > 60.0 (>51)
== END ==
LOC: M ADAMS 16:53
DX: M48.02 Spinal stenosis, cervical region (principal)
CPT/HCPCS: 82565

== ENCOUNTER → 2018-08-08 | Outpatient (REF) | payer BC, OTHER ==
[~2018-08-08] MED LIST changes: +ALLE12TA31 PO; +ASTE0.15; +AUGM875T28 PO; +BIOT50004 PO; +CENTTAB47 PO; +CITROCAL PO; +HYDR-3713 PO; +HYDR-3716 PO; -ISOVUE-M 300 61% 15ML VIAL (Q9967) As Ordered; -LIDOCAINE 1% SDV INJ 30 ML VIAL As Ordered; +MELA3TAB49 PO; +PROBCAP4 PO; +PROT1TAB2 PO; +SING10TA32 PO; +SYNT100T PO; +TYLE325T5 PO; +VITA200015 PO; +VITA250L PO; +asmanex INH; -diazePAM 5 MG TAB As Ordered; -methylPREDNISolone SUSP 40 MG/ML (DEPO-medrol) VIAL (J1030) As Ordered; -oxyCODONE 5MG TAB As Ordered
== END ==
LOC: M LAB REF 16:37
PROVIDERS: ATTEND Internal Medicine
DX: R39.11 Hesitancy of micturition (principal)

== ENCOUNTER → 2018-08-22 | Outpatient (REF) | payer OTHER ==
[2018-08-22 15:04] LABS: APPEARANCE, URINE HAZY (CLEAR); BACTERIA, URINE AUTO 1+ (NEGATIVE); BILIRUBIN, URINE AUTO NEGATIVE (NEGATIVE); BLOOD, URINE BLOOD NEGATIVE (NEGATIVE); COLOR, URINE YELLOW (YELLOW); GLUCOSE, URINE (UA) AUTO NEGATIVE (NEGATIVE); KETONE, URINE AUTO NEGATIVE (NEGATIVE); LEUKOCYTE ESTERASE, URINE AUTO NEGATIVE (NEGATIVE); MUCUS, URINE SMALL (NEGATIVE); NITRITE, URINE AUTO NEGATIVE (NEGATIVE); PROTEIN, URINE AUTO NEGATIVE (NEGATIVE); RBC, URINE AUTO 0 /HPF (0-3); SPECIFIC GRAVITY URINE AUTO 1.017 (1.002-1.035); SQUAMOUS EPITHELIAL CELL UR AU 12 /HPF (0-6); UROBILINOGEN, URINE AUTO 0.2 mg/dL (0.0-2.0); WBC, URINE AUTO 1 /HPF (0-3)
== END ==
LOC: M LAB REF 12:16
PROVIDERS: ATTEND Internal Medicine
DX: Z01.818 Encounter for other preprocedural examination (principal)

== ENCOUNTER → 2020-04-23 | Outpatient (REF) | payer OTHER | LOC: M LAB REF 12:29 | PROVIDERS: ATTEND Nurse Practitioner Family | DX: R30.0 Dysuria (principal) ==

== ENCOUNTER → 2020-10-30 | Outpatient (REF) | payer OTHER ==
[2020-11-03 03:05] LABS: ANTINUCLEAR ANTIBODIES DIRECT Negative (Negative); CYCLIC CITRULLINATED PEPTIDE 4 units (0-19); Lyme Disease IgG/IgM Antibodie <0.91 ISR (0.00-0.90); Lyme Disease IgM Ab Quantitati <0.80 index (0.00-0.79)
== END ==
LOC: M LAB REF 16:10
PROVIDERS: ATTEND Internal Medicine
DX: M25.50 Pain in unspecified joint (principal)

== ENCOUNTER → 2021-11-13 | Outpatient (REF) | payer OTHER ==
[2021-11-13 13:37] LABS: PERCENT SATURATION 10.4 % (13.2-45.0)
== END ==
LOC: M LAB REF 12:53
PROVIDERS: ATTEND Internal Medicine
DX: D51.9 Vitamin B12 deficiency anemia, unspecified (principal)

== ENCOUNTER → 2022-05-28 | Outpatient (REF) | payer OTHER ==
[2022-05-31 14:29] LABS: THYROGLOBULIN ANTIBODY < 15.0 U/ML (<60.0); THYROID PEROXIDASE ANTIBODY 42.7 U/ML (<60.0)
== END ==
LOC: M LAB REF 11:29
PROVIDERS: ATTEND Internal Medicine
DX: E03.9 Hypothyroidism, unspecified (principal)

== ENCOUNTER → 2022-09-07 | Outpatient (CLI) | payer OTHER | LOC: M WUC 11:09 | PROVIDERS: ATTEND Internal Medicine | DX: R07.89 Other chest pain (principal); M25.78 Osteophyte, vertebrae ==

== ENCOUNTER → 2022-10-25 | Outpatient (REF) | payer BC, OTHER ==
[~2022-10-25] MED LIST changes: +MONT-5 PO; -SING10TA32 PO
[2022-10-25 13:33] LABS: PERCENT SATURATION 26.4 % (13.2-45.0)
[2022-10-25 13:36] LABS: FERRITIN 35.5 NG/ML (7.3-270.7)
== END ==
LOC: M LAB REF 12:45
PROVIDERS: ATTEND Internal Medicine
DX: Z98.84 Bariatric surgery status (principal)

== ENCOUNTER → 2023-10-27 | Outpatient (CLI) | payer BC ==
[~2023-10-27] MED LIST changes: -BIOT50004 PO; +BIOT5CAP8 PO
== END ==
LOC: M PLAIMG 08:23
PROVIDERS: ATTEND Physician Assistant
DX: J32.8 Other chronic sinusitis (principal)

== ENCOUNTER → 2024-02-09 | Outpatient (REF) | payer BC, OTHER ==
[2024-02-09 14:19] LABS: PERCENT SATURATION 13.7 % (13.2-45.0)
[2024-02-09 14:22] LABS: RHEUMATOID FACTOR QUANT 4.6 IU/ML (<14)
[2024-02-09 14:24] LABS: FERRITIN 11.8 NG/ML (7.3-270.7)
[2024-02-10 15:42] LABS: ANA SCREEN, IFA POSITIVE (NEGATIVE)
[2024-02-11 01:18] LABS: CYCLIC CITRULLINATED PEPTIDE < 16 UNITS (<20)
[2024-02-13 17:38] LABS: LYME TOTAL ANTIBODY CIA <= 0.90 Index (<=0.90)
== END ==
LOC: M LAB REF 12:17
PROVIDERS: ATTEND Internal Medicine
DX: M79.7 Fibromyalgia (principal); M25.50 Pain in unspecified joint; D50.9 Iron deficiency anemia, unspecified

== ENCOUNTER → 2024-07-23 | Outpatient (REF) | payer OTHER, BC ==
[2024-07-23 15:11] LABS: PERCENT SATURATION 25.2 % (13.2-45.0)
[2024-07-23 15:16] LABS: FERRITIN 44.4 NG/ML (7.3-270.7); TOTAL T3 78.3 NG/DL (60.0-181.0)
== END ==
LOC: M LAB REF 12:13
PROVIDERS: ATTEND Internal Medicine
DX: D50.9 Iron deficiency anemia, unspecified (principal); E03.9 Hypothyroidism, unspecified

== ENCOUNTER → 2025-01-30 | Outpatient (REF) | payer BC ==
[2025-01-30 18:59] LABS: IRON (FE) 65.0 UG/DL (50-170)
[2025-01-30 19:00] LABS: PERCENT SATURATION 20.7 % (13.2-45.0)
== END ==
LOC: M LAB REF 18:06
PROVIDERS: ATTEND Internal Medicine
DX: D50.9 Iron deficiency anemia, unspecified (principal)

== ENCOUNTER → 2025-02-11 | Outpatient (CLI) | payer BC | LOC: M PLAIMG 13:38 | PROVIDERS: ATTEND Neurological Surgery | DX: M53.3 Sacrococcygeal disorders, not elsewhere classified (principal); M47.26 Other spondylosis with radiculopathy, lumbar region; M47.814 Spondylosis without myelopathy or radiculopathy, thoracic region; M48.061 Spinal stenosis, lumbar region without neurogenic claudication; M47.818 Spondylosis without myelopathy or radiculopathy, sacral and sacrococcygeal region ==

== ENCOUNTER → 2025-02-25 | Outpatient (CLI) | payer BC | LOC: M PLAIMG 09:07 | PROVIDERS: ATTEND Physician Assistant | DX: M54.50 Low back pain, unspecified (principal) ==

== ENCOUNTER → 2025-03-05 | Outpatient (REF) | payer BC, OTHER ==
[2025-03-05 16:49] LABS: BASO # 0.0 10^3/uL (0.0-0.2); BASO % 0.6 % (0.0-1.0); EOS # 0.2 10^3/uL (0.0-0.5); EOS % 3.3 % (0.0-3.0); LYMPH # 2.1 10^3/uL (1.5-5.0); LYMPH % 43.9 % (24.0-44.0); MONO # 0.4 10^3/uL (0.0-0.8); MONO % 9.1 % (2.0-8.0); NEUTROPHILS # 2.1 10^3/uL (1.5-8.5); NEUTROPHILS % 42.9 % (36.0-66.0); PLATELET COUNT, AUTOMATED 323 10^3/uL (150-450)
[2025-03-05 17:08] LABS: CALCIUM LEVEL 8.7 MG/DL (8.5-10.1); CARBON DIOXIDE LEVEL 30 MMOL/L (20-31); CHLORIDE LEVEL 102 MMOL/L (98-107); CREATININE FOR GFR 0.75 MG/DL (0.55-1.30); GLOMERULAR FILTRATION RATE > 90.0 (>51); POTASSIUM SERUM 4.5 MMOL/L (3.5-5.1); SODIUM LEVEL 141 MMOL/L (136-145)
[2025-03-05 17:27] LABS: INR 0.94
== END ==
LOC: M LAB REF 16:40 → M LABDRWAD 16:40
PROVIDERS: ATTEND Neurological Surgery
DX: Z01.812 Encounter for preprocedural laboratory examination (principal); Z79.82 Long term (current) use of aspirin